=== PATIENT | male | born 1960 | race Caucasian/White ===

== ENCOUNTER 2018-02-05 15:29 | Outpatient (CLI) | payer MEDICAID, SELFPAY ==
--- NOTE | 2018-02-05 15:29 | DI.REPORT_ITS ---
SYMPTOMS/DIAGNOSIS: LOW BACK PAIN, M54.5 LUMBOSACRAL SPINE: The vertebral bodies are intact. Disc space narrowing is noted at L3-L4, L4-L5 and L5-S1. Endplate sclerosis and syndesmophyte formation is evident. Also, there are degenerative changes at T11-T12 and T12-L1 levels. The pedicles, spinous and transverse processes appear intact. Facet joint DJD is demonstrated without evidence of spondylolysis or spondylolisthesis. The sacrum and sacroiliac joints appear intact. SUMMARY: Multilevel degenerative disc disease and DJD is demonstrated. Please see the above discussion.
== END 2018-02-05 15:30 ==
PROVIDERS: PCP Family Medicine; Visit Provider Family Medicine
DX: M54.5 Low back pain (principal); M51.36 Other intervertebral disc degeneration, lumbar region
CPT/HCPCS: 72110

== ENCOUNTER 2018-07-31 01:08 | Outpatient (CLI) | payer MEDICAID, SELFPAY ==
[2018-07-31 12:50] LABS: ALT 21 U/L (12-78); AST 17 U/L (15-37); Albumin 3.4 g/dL (3.4-5.0); Alkaline Phosphatase 107 U/L (46-116); Anion Gap 9.4 mmol/L (3-11); BUN 22 mg/dL (7-18); CO2 26.6 mmol/L (21.0-32.0); CREATININE 1.14 mg/dL (0.70-1.30); Chloride 104 mmol/L (98-107); Cholesterol 152 mg/dL (50-200); Glucose 86 mg/dL (70-100); HDL Cholesterol 37 mg/dL (40-60); LDL CHOLESTEROL 88 mg/dL (<100); Potassium 4.3 mmol/L (3.5-5.1); Sodium 140 mmol/L (136-145); TSH (W/Ref FT4) 3.71 uIU/mL (0.358-3.74); Total Protein 7.3 g/dL (6.4-8.2); Triglyceride 152 mg/dL (30-150)
[2018-07-31 13:05] LABS: Bilirubin, Total 0.6 mg/dL (0.2-1.0)
== END 2018-07-31 01:28 ==
PROVIDERS: PCP Family Medicine; Visit Provider Family Medicine
DX: D86.9 Sarcoidosis, unspecified (principal); E78.5 Hyperlipidemia, unspecified; I25.10 Atherosclerotic heart disease of native coronary artery without angina pectoris; I10 Essential (primary) hypertension; Z00.00 Encounter for general adult medical examination without abnormal findings
CPT/HCPCS: 36415; 80053; 80061; 83721; 84443

== ENCOUNTER 2018-10-09 02:05 | Outpatient (CLI) | payer MEDICAID, SELFPAY ==
[2018-10-09 09:44] LABS: Abs Immature Grans 0.06 k/cumm (0.0-0.09); Absolute Basophil Count 0.03 k/cumm (0.0-0.2); Absolute Eosinophil Count 0.39 k/cumm (0.0-0.7); Absolute Lymphocyte Count 0.84 k/cumm (1.2-3.4); Absolute Monocyte Count 0.98 k/cumm (0.11-0.7); Absolute Neutrophil Count 7.11 k/cumm (1.2-6.7); Basophils % 0.3; Eosinophils % 4.1; HCT 43.2 % (40.0-50.0); HGB 14.4 g/dL (13.5-17.5); Immature Grans % 0.6; Lymphocytes % 8.9; Mean Corp. HGB Concentration 33.3 g/dL (32.0-36.0); Mean Corpuscular Hemoglobin 28.9 pg (27.0-33.0); Mean Corpuscular Volume 86.7 fL (80-95); Mean Platelet Volume 9.5 fL (8.0-11.0); Monocytes % 10.4; Neutrophils % 75.7; Platelet Count 290 x1000/uL (130-400); RBC 4.98 m/cumm (4.50-6.00); RBC Distribution Width 14.2 % (11.8-14.1); White Blood Cell Count 9.41 k/cumm (4.4-10.8)
[2018-10-09 10:27] LABS: ALT 25 U/L (12-78); AST 16 U/L (15-37); Albumin 3.8 g/dL (3.4-5.0); Alkaline Phosphatase 95 U/L (46-116); Anion Gap 7.9 mmol/L (3-11); BUN 22 mg/dL (7-18); Bilirubin, Total 0.5 mg/dL (0.2-1.0); CO2 28.1 mmol/L (21.0-32.0); CREATININE 1.18 mg/dL (0.70-1.30); Calcium 9.3 mg/dL (8.5-10.1); Chloride 102 mmol/L (98-107); Glucose 94 mg/dL (70-100); Sodium 138 mmol/L (136-145); Total Protein 7.7 g/dL (6.4-8.2)
== END 2018-10-09 02:25 ==
PROVIDERS: PCP Family Medicine; Visit Provider Internal Medicine Infectious Disease
DX: B45.0 Pulmonary cryptococcosis (principal)
CPT/HCPCS: 36415; 80053; 85025; 86403

== ENCOUNTER 2019-01-14 11:57 | Emergency (ER) | payer MEDICAID, SELFPAY ==
[2019-01-14 12:04] VITALS: BP 130/68; PULSE 103; RESP 20; TEMP 37.7; O2SAT 97
[2019-01-14 12:26] LABS: Bilirubin Small (Negative); Blood Moderate (Negative); Clarity Cloudy (Clear); Glucose Negative (Negative); Ketones Trace mg/dL (Negative); Leukocyte Esterase Moderate (Negative); Nitrite Positive (Negative)
[2019-01-14] MEDS: Normal Saline 1,000 ML 1000 ML IV ×2 (12:32→14:30)
[2019-01-14] MEDS: Normal Saline Flush 10 ML SYR IVP (12:32)
[2019-01-14 12:40] LABS: Abs Immature Grans 0.03 k/cumm (0.0-0.09); Absolute Basophil Count 0.02 k/cumm (0.0-0.2); Absolute Eosinophil Count 0.04 k/cumm (0.0-0.7); Absolute Lymphocyte Count 0.37 k/cumm (1.2-3.4); Basophils % 0.2; Eosinophils % 0.3; HCT 38.8 % (40.0-50.0); Immature Grans % 0.2; Mean Corp. HGB Concentration 33.5 g/dL (32.0-36.0); Mean Corpuscular Hemoglobin 28.3 pg (27.0-33.0); Mean Corpuscular Volume 84.3 fL (80-95); Mean Platelet Volume 9.6 fL (8.0-11.0); Monocytes % 4.7; Neutrophils % 91.6; Platelet Count 245 x1000/uL (130-400); RBC Distribution Width 14.4 % (11.8-14.1); White Blood Cell Count 12.46 k/cumm (4.4-10.8)
[2019-01-14 12:41] LABS: Absolute Monocyte Count 0.59 k/cumm (0.11-0.7); Absolute Neutrophil Count 11.41 k/cumm (1.2-6.7)
[2019-01-14 12:46] LABS: Bacteria Many HPF (Negative); C & S Indicated? Yes; Casts Negative LPF (Negative); Crystals Negative HPF (Negative); Epithelial Cells Negative HPF (Negative); Mucus Negative (Negative); WBC >50 HPF (0-5)
[2019-01-14 12:56] LABS: ALT 17 U/L (12-78); AST 14 U/L (15-37); Albumin 3.2 g/dL (3.4-5.0); Alkaline Phosphatase 96 U/L (46-116); Anion Gap 13.2 mmol/L (3-11); BUN 26 mg/dL (7-18); Bilirubin, Total 0.7 mg/dL (0.2-1.0); CO2 22.8 mmol/L (21.0-32.0); CREATININE 1.57 mg/dL (0.70-1.30); Calcium 8.8 mg/dL (8.5-10.1); Chloride 95 mmol/L (98-107); Estimated GFR 45.45 (mL/min/1.73m2); Glucose 156 mg/dL (70-100); Potassium 3.7 mmol/L (3.5-5.1); Sodium 131 mmol/L (136-145)
--- NOTE | 2019-01-14 12:57 | DI.RAD_ITS ---
SYMPTOM/DIAGNOSIS: COUGH, FEVER PA AND LATERAL CHEST: The diaphragm is elevated on the left and is significantly more elevated than on previous radiograph of 06/2015. There is a new left suprahilar mass with probable left upper lobe volume loss. Patchy areas of increased radiodensity are seen in the right upper lobe as well which are nonspecific. No pleural effusion is seen. CONCLUSION: Findings suspicious for new left upper lobe mass measuring up to 7 cm. in diameter on the lateral view. Question additional intrapulmonary infiltrates or nodules, left upper lobe and right upper lobe. Correlation with chest CT suggested if the patient has not had a recent chest CT.
[2019-01-14] MEDS: cefTRIAXone 1 GM/50 ML BAG IVPB (13:39)
--- NOTE | 2019-01-14 14:09 | ED.GENADUL_ITS ---
Discharge Plan Disposition Patient Disposition: HOME Condition: Stable Discharge Details Chief Complaint: Urinary Clinical Impression: Urinary tract infection Primary Care Provider: Caryn Hammond ED Provider: Randal Díaz Home Meds and New Rx's Prescriptions: New cephalexin [Keflex] 500 mg capsule 500 mg PO TID 7 Days Qty: 21 RF: 0 Continued atorvastatin 40 mg tablet 40 mg PO DAILY Qty: 90 RF: 12 Advair HFA 115-21 mcg/actuation HFA aerosol inhaler 2 puff Inhalation BID Qty: 3 RF: 12 omeprazole 20 mg capsule,delayed release(DR/EC) 20 mg PO DAILY Qty: 90 RF: 12 levothyroxine 50 mcg tablet 50 mcg PO DAILY Qty: 90 RF: 12 aspirin [Aspirin Low-Strength] 81 MG tablet,chewable 81 mg PO DAILY RF: 0 albuterol sulfate [ProAir HFA] 8.5 GM HFA aerosol inhaler 1 - 2 puff Inhalation Q6H PRN Qty: 1 RF: 1 atenolol 50 MG tablet 0.5 tab PO DAILY Qty: 45 RF: 12 Spiriva with HandiHaler 18 mcg capsule, w/inhalation device 1 cap Inhalation DAILY Qty: 3 RF: 12 Discharge Instructions Instructions: Urinary Tract Infection in Men (ED) Additional Instructions: Return immediately to the emergency department for any new or significant worsening of symptoms, fever chills, nausea vomiting. Otherwise stay well- hydrated and follow-up with your primary care provider or return to the emergency department if not improving in the next 24 to 48-hour Referrals: Caryn Hammond MD, [place] [Primary Care Provider] - Discharge Data Discharge Date/Time-TO BE ENTERED AT DEPARTURE: 01/14/19 15:55 Medical Decision Making Patient reports on Friday he started having some dysuria and discomfort. Due to this patient started drinking less water due to it hurting when he peed. Today he is developed a fever and chills along with continued dysuria. Patient denies any penile discharge, new sexual partners or risk for STI, denies chest pain nausea vomiting diarrhea, does state cough which is chronic for him. Physical exam shows clear lung sounds throughout all lung moraes, patient slightly tachycardiac otherwise normal cardiac exam, no abdominal pain or discomfort no CVA tenderness. Plan to check labs and urinalysis given the patient is low- grade fever, tachycardic, and has urinary symptoms. Review of urinalysis shows findings suggestive of urinary tract infection. Labs reviewed and shows leukocytosis, low sodium and chloride with elevated anion gap and decreased renal function, slightly elevated glucose, otherwise nondiagnostic CMP. Chest x-ray was performed due to patient's report of cough and does show abnormality in the left upper lung with elevated diaphragm. Did review [facility] records and shows CT scan that was performed on 09/29/2018 and shows similar results. Patient states that he has been followed up with these results with pulmonology and even just saw them recently. Given this I do not feel that any other interventions are needed for abnormal chest x-ray. Given concerning findings for urinary tract infection pending culture patient was given 1 dose IV Rocephin and plan to place patient on Keflex 500 3 times daily. staffing coordinator did inform me after 1 L of fluids patient did urinate 450 out area did have patient bladder scan due to him stating difficulty voiding and did have 250 mL's still present in the bladder. Discussed with patient further hydration and/or catheter but patient refused indwelling catheter at this time but did state he would take further hydration given that he has not been drinking much fluids. Patient stated continued improvement overall symptoms patient discharged. Return precautions were discussed after discussion of diagnosis and plan of care patient has no further needs, questions, or concerns and states clear understanding to return to the emergency department for any worsening symptoms.. HPI General Mode of arrival: ambulatory . Date/Time Provider Initiated Documentation: 01/14/19 12:09 . Limitations to Documentation: no limitations . Information obtained by: patient and RN notes reviewed . History of Present Illness 58 year old M presents to the emergency department with the chief complaint of UTI symptoms , Quality is described as other (Denies any pain), Patient started experiencing this day(s) (4) and it has been constant. No relieving factors improve symptom(s), No exacerbating factors reported . Patient notes no other symptoms.. Patient did receive the following treatments prior to arrival, none Related Data Home Medications Medication Instructions Recorded Confirmed aspirin [Aspirin Low-Strength] 81 mg PO DAILY tab-cap 08/12/12 12/03/18 albuterol sulfate [ProAir HFA] 1 - 2 puff INHALATION Q6H PRN #1 04/30/18 06/27/19 inhaler atenolol 0.5 tab PO DAILY #45 tab 02/05/18 12/03/18 tiotropium bromide 18 mcg capsule 1 cap INHALATION DAILY #3 tab-cap 05/12/18 12/03/18 with inhalation device atorvastatin 40 mg tablet 40 mg PO DAILY #90 tab-cap 08/04/18 12/03/18 fluticasone propionate-salmeterol 2 puff INHALATION BID #3 inhaler 08/04/18 12/03/18 115 mcg-21 mcg/actuation HFA inhaler omeprazole 20 mg capsule,delayed 20 mg PO DAILY #90 tab-cap 08/04/18 12/03/18 release levothyroxine 50 mcg tablet 50 mcg PO DAILY #90 tab-cap 12/03/18 12/03/18 cephalexin [Keflex] 500 mg PO TID 7 Days #21 cap 01/14/19 Previous Rx's Medication Instructions Recorded albuterol sulfate [ProAir HFA] 1 - 2 puff INHALATION Q6H PRN #1 10/06/17 inhaler atenolol 0.5 tab PO DAILY #45 tab 02/05/18 tiotropium bromide 18 mcg capsule 1 cap INHALATION DAILY #3 tab-cap 05/12/18 with inhalation device atorvastatin 40 mg tablet 40 mg PO DAILY #90 tab-cap 08/04/18 fluticasone propionate-salmeterol 2 puff INHALATION BID #3 inhaler 08/04/18 115 mcg-21 mcg/actuation HFA inhaler omeprazole 20 mg capsule,delayed 20 mg PO DAILY #90 tab-cap 08/04/18 release levothyroxine 50 mcg tablet 50 mcg PO DAILY #90 tab-cap 12/03/18 cephalexin [Keflex] 500 mg PO TID 7 Days #21 cap 01/14/19 Allergies Allergy/AdvReac Type Severity Reaction Status Date / Time No Known Allergies Allergy Unverified 01/14/19 12:20 General Stated Complaint: Urinary RADHA: 3 Review of Systems Constitutional Denies body ache(s), Reports chills, Reports fever(s), Reports malaise and Denies weakness Cardiovascular Denies chest pain Respiratory Reports cough Gastrointestinal Denies abdominal pain, Denies nausea and Denies vomiting Genitourinary Reports as per HPI, Denies hematuria, Reports difficulty urinating, Reports dy suria, Denies penile discharge, Denies testicular pain and Reports urinary urgency Neurologic Denies weakness [facility] Medical History Annual physical exam (Resolved 02/05/18) ASCVD (arteriosclerotic cardiovascular disease) ASCVD (arteriosclerotic cardiovascular disease) (Resolved) Duodenitis (Resolved) Essential hypertension (Chronic 04/16/13) Foul smelling urine (Resolved) HTN (hypertension) Hyperlipidemia Hyperlipidemia (Chronic) Low back pain (Chronic 02/05/18) Mild intermittent reactive airway disease with acute exacerbation (Chronic 05/25/15) Nausea Nausea (Resolved) Pulmonary cryptococcosis (Acute) Reactive airway disease Sarcoidosis Sarcoidosis (Chronic 11/28/09) Syncope and collapse (Resolved) Weight loss (Chronic 06/16/17) Surgical History EGD - MAC (07/26/16) HEART CATH (~2006) S/P cardiac catheterization (Resolved) Family History Mother Hyperlipidemia Father No problems noted. Grandfather No problems noted. Grandmother Deep venous thrombosis Grandmother Heart disease Social History Smoking/Tobacco Use Status: Never Drug use: Never Do you feel safe at home: Yes Do you feel safe in your relationship?: Yes Exam Const General: cooperative and no acute distress Orientation: alert, awake and oriented x3 Resp Effort & Inspection: normal respiratory effort and able to speak in complete sentences Auscultation: clear to auscultation bilaterally Cardio Rate: regular rate Rhythm: regular rhythm Heart Sounds: S1 normal and S2 normal GI Palpation: nontender Back/Spine/Pelvis Back: no CVA tenderness Neuro General: alert, awake and oriented x3 Extrem General: normal capillary refill Course Vital Signs Temperature 37.7 C H 01/14/19 12:04 Pulse 103 H 01/14/19 12:04 Respiratory Rate 20 01/14/19 12:04 Blood Pressure 130/68 01/14/19 12:04 Pulse Oximetry 97 01/14/19 12:04 Temperature 37.7 C H 01/14/19 12:04 Temperature Source Temporal Artery Scan 01/14/19 12:04 Pulse 103 H 01/14/19 12:04 Respiratory Rate 20 01/14/19 12:04 Respiratory Effort Non-Labored 01/14/19 12:19 Blood Pressure 130/68 01/14/19 12:04 Pulse Oximetry 97 01/14/19 12:04 Oxygen Delivery Method Room Air 01/14/19 12:04 Oxygen Flow Rate 0 01/14/19 12:04 Lab/Test Results Lab/Test Results: 01/14/19 12:15 Urine - Reflex from Ua Urine Culture - Pending Laboratory Tests Range/Units 01/14/19 01/14/19 01/14/19 12:15 12:30 12:30 WBC (4.4-10.8) k/cumm 12.46 H RBC (4.50-6.00) m/cumm 4.60 Hgb (13.5-17.5) g/dL 13.0 L Hct (40.0-50.0) % 38.8 L MCV (80-95) fL 84.3 MCH (27.0-33.0) pg 28.3 MCHC (32.0-36.0) g/dL 33.5 RDW (11.8-14.1) % 14.4 H Plt Count (130-400) x1000/uL 245 MPV (8.0-11.0) fL 9.6 Immature Gran % 0.2 Neutrophils % 91.6 Lymphocytes % 3.0 Monocytes % 4.7 Eosinophils % 0.3 Basophils % 0.2 Absolute Neutrophils (1.2-6.7) k/cumm 11.41 H Absolute Lymphocytes (1.2-3.4) k/cumm 0.37 L Absolute Monocytes (0.11-0.7) k/cumm 0.59 Absolute Eosinophils (0.0-0.7) k/cumm 0.04 Absolute Basophils (0.0-0.2) k/cumm 0.02 Sodium (136-145) mmol/L 131 L Potassium (3.5-5.1) mmol/L 3.7 Chloride (98-107) mmol/L 95 L Carbon Dioxide (21.0-32.0) mmol/L 22.8 Anion Gap (3-11) mmol/L 13.2 H BUN (7-18) mg/dL 26 H Creatinine (0.70-1.30) mg/dL 1.57 H Estimated GFR/1.73 m2 (mL/min/1.73m2) 45.45 Glucose (70-100) mg/dL 156 H Calcium (8.5-10.1) mg/dL 8.8 Total Bilirubin (0.2-1.0) mg/dL 0.7 AST (15-37) U/L 14 L ALT (12-78) U/L 17 Alkaline Phosphatase (46-116) U/L 96 Total Protein (6.4-8.2) g/dL 8.0 Albumin (3.4-5.0) g/dL 3.2 L Urine Color (Yellow) Yellow Urine Clarity (Clear) Cloudy Urine pH (5-8) 6.0 Ur Specific [place] (1.005-1.025) 1.010 Urine Protein (Negative) mg/dL 100 H Urine Ketones (Negative) mg/dL Trace H Urine Blood (Negative) Moderate H Urine Nitrite (Negative) Positive H Urine Bilirubin (Negative) Small H Urine Urobilinogen (Up TO 0.2) EU/dL 1.0 H Ur Leukocyte Esterase (Negative) Moderate H Urine RBC (0-2) 3-5 H Urine WBC (0-5) HPF >50 Ur Epithelial Cells (Negative) HPF Negative Urine Crystals (Negative) HPF Negative Urine Bacteria (Negative) HPF Many Urine Casts (Negative) LPF Negative Urine Mucus (Negative) Negative Ur Culture Indicated? Yes Urine Glucose (Negative) mg/dL Negative
== END 2019-01-14 15:55 | disposition home or self-care (01) ==
PROVIDERS: Emergency Provider Nurse Practitioner Family; PCP Family Medicine
DX: N39.0 Urinary tract infection, site not specified (principal); R05 Cough; I10 Essential (primary) hypertension; J45.909 Unspecified asthma, uncomplicated
CPT/HCPCS: 36415; 80053; 87077; 96361; 96365; 99284; 71046; 81003; 81015; 85025; 87086; 87186; J0696; J3490

== ENCOUNTER 2019-10-07 01:09 | Outpatient (CLI) | payer MEDICAID, SELFPAY ==
[2019-10-07 08:36] LABS: Abs Immature Grans 0.03 k/cumm (0.0-0.09); Absolute Basophil Count 0.03 k/cumm (0.0-0.2); Absolute Eosinophil Count 0.41 k/cumm (0.0-0.7); Absolute Monocyte Count 0.75 k/cumm (0.11-0.7); Absolute Neutrophil Count 5.15 k/cumm (1.2-6.7); Basophils % 0.4; Eosinophils % 5.6; HGB 13.7 g/dL (13.5-17.5); Immature Grans % 0.4 %; Lymphocytes % 12.4; Mean Corp. HGB Concentration 33.4 g/dL (32.0-36.0); Mean Corpuscular Hemoglobin 28.6 pg (27.0-33.0); Mean Corpuscular Volume 85.6 fL (80-95); Mean Platelet Volume 9.2 fL (8.0-11.0); Monocytes % 10.3; Neutrophils % 70.9; Platelet Count 300 x1000/uL (130-400); RBC 4.79 m/cumm (4.50-6.00); RBC Distribution Width 14.5 % (11.8-14.1); White Blood Cell Count 7.27 k/cumm (4.4-10.8)
[2019-10-07 09:48] LABS: ALT 24 U/L (16-63); AST 29 U/L (15-37); Albumin 3.8 g/dL (3.4-5.0); Alkaline Phosphatase 134 U/L (46-116); Anion Gap 6.8 mmol/L (3-11); BUN 17 mg/dL (7-18); Bilirubin, Total 0.6 mg/dL (0.2-1.0); CO2 29.2 mmol/L (21.0-32.0); CREATININE 1.42 mg/dL (0.70-1.30); Calcium 9.4 mg/dL (8.5-10.1); Calculated LDL 107 mg/dL (<100); Chloride 102 mmol/L (98-107); Cholesterol 174 mg/dL (<200); Estimated GFR 50.85 (mL/min/1.73m2); Glucose 93 mg/dL (74-106); HDL Cholesterol 35 mg/dL (40-60); Potassium 5.4 mmol/L (3.5-5.1); Sodium 138 mmol/L (136-145); TSH (W/Ref FT4) 2.48 uIU/mL (0.36-3.74); Total Protein 7.9 g/dL (6.4-8.2); Triglyceride 164 mg/dL (<150)
== END 2019-10-07 01:29 ==
PROVIDERS: PCP Family Medicine; Visit Provider Family Medicine
DX: E03.9 Hypothyroidism, unspecified (principal); E78.5 Hyperlipidemia, unspecified; B45.0 Pulmonary cryptococcosis
CPT/HCPCS: 36415; 80053; 80061; 84443; 85025

== ENCOUNTER 2020-02-29 00:30 | Outpatient (CLI) | payer MEDICAID, SELFPAY ==
--- NOTE | 2020-02-29 08:00 | DI.US_ITS ---
EXAM: US CAROTID CLINICAL HISTORY: syncope vs seizure,R55. TECHNIQUE: Ultrasound carotids performed using grayscale, color-flow, and spectral Doppler imaging. COMPARISON: No exams were available for comparison FINDINGS: RIGHT CAROTID ARTERY: Plaque: None Velocity elevation: None. LEFT CAROTID ARTERY: Plaque: None Velocity elevation: None. VERTEBRAL ARTERIES: Antegrade flow. Measurements: R Bulb: 45.2cm/s PS / 13.7cm/s ED R CCA: 71.5cm/s PS / 15.8cm/s ED R ECA: 88.9cm/s PS / 15.2cm/s ED R ICA Prox: 58.9cm/s PS /16.8cm/s ED R ICA Mid: 81cm/s PS / 27.3cm/s ED R ICA Distal: 87.8cm/s PS /33.7cm/s ED R Vert: 47.9cm/s PS / 12.6cm/s ED R SVR: 1.23 R DVR: 2.13 L Bulb: 65.7cm/s PS /10.5cm/s ED L CCA: 93.1cm/s PS / 24.7cm/s ED L ECA: 60.5cm/s PS /9.5cm/s ED L ICA Prox:67.8cm/s PS / 16.8cm/s ED L ICA Mid: 74.1cm/sPS / 25.2cm/s ED L ICA Distal: 77.3cm/s PS / 27.3cm/s ED L Vert: 46.3cm/s PS / 10cm/s ED L SVR: 0.83 L DVR: 1.11 IMPRESSION: No evidence for hemodynamically significant carotid stenosis. Criteria for Carotid Stenosis: Normal: ICA PSV <125 cm/s no plaque or intimal thickening is visible. <50% stenosis: ICA PSV <125 cm/s and plaque or intimal thickening is visible. 50-69% stenosis: ICA PSV is 125-250 cm/s and plaque is visible. >70% stenosis to near occlusion: ICA PSV >250 cm/s with visible plaque and luminal narrowing. DATA REPOSITORY:
--- NOTE | 2020-02-29 08:00 | DI.MRI_ITS ---
EXAM: MR BRAIN WO CLINICAL HISTORY: SYNCOPE,R55 TECHNIQUE: Multiplanar multisequence MRI of the brain was performed. COMPARISON: No exams were available for comparison FINDINGS: VENTRICLES AND EXTRA AXIAL SPACES: Normal in size and morphology for the patient's age. MIDLINE SHIFT: None. CEREBRAL PARENCHYMA: No focus of restricted diffusion to suggest acute infarct. No space-occupying le lynda identified. HEMORRHAGE: None. BRAINSTEM/CEREBELLUM: Normal. CALVARIUM: Normal. VISUALIZED PARANASAL SINUSES/MASTOIDS:Small mucous retention cyst or polyp in the left maxillary sinu s. The sinuses and mastoid air cells are otherwise clear. [place]: Normal flow void. PIT[place]ARY GL[place]: Unremarkable. OTHER FINDINGS: None. IMPRESSION: Unremarkable MRI of the brain. DATA REPOSITORY:
== END 2020-02-29 00:50 ==
PROVIDERS: PCP Family Medicine; Visit Provider Family Medicine
DX: R55 Syncope and collapse (principal)
CPT/HCPCS: 70551; 93880

== ENCOUNTER 2020-02-29 03:26 | Outpatient (CLI) | payer MEDICAID, SELFPAY | END 2020-02-29 03:46 | PROVIDERS: PCP Family Medicine; Visit Provider Family Medicine | DX: R55 Syncope and collapse (principal) | CPT/HCPCS: 93225 ==

== ENCOUNTER 2020-03-02 04:54 | Outpatient (CLI) | payer MEDICAID, SELFPAY ==
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
== END 2020-03-02 05:14 ==
PROVIDERS: PCP Family Medicine; Visit Provider Family Medicine
DX: R41.89 Other symptoms and signs involving cognitive functions and awareness (principal)
CPT/HCPCS: 95819

== ENCOUNTER 2020-03-03 07:59 | Outpatient (CLI) | payer MEDICAID, SELFPAY | END 2020-03-03 08:19 | PROVIDERS: PCP Family Medicine; Visit Provider Family Medicine | DX: R55 Syncope and collapse (principal) | CPT/HCPCS: 93226 ==

== ENCOUNTER 2020-03-21 00:08 | Outpatient (CLI) | payer MEDICAID, SELFPAY ==
--- NOTE | 2020-03-03 08:48 | W.HOLTRPT ---
Date of service: 03/03/20 Time of Service: 08:48 Holter Monitor Report Referring Provider:: marta Indications:: Syncope Holter Monitor Note: This is a 48-hour Holter monitor ordered for the indication of syncope. ?The patient was in normal sinus rhythm for the majority of the recording with an average heart rate of 75 bpm. ?There were 0 episodes of ventricular tachycardia and nor any episodes of supraventricular tachycardia. ?There were 4 total PACs and 3 total PVCs. ?There were no episodes of atrial fibrillation, no pauses greater than 3 seconds and no evidence of high degree heart block.
--- NOTE | 2020-03-21 06:00 | DI.US_ITS ---
APPROVED REPORT EXAM: Comprehensive 2D, Doppler, and color-flow Echocardiogram Patient Location: Out-Patient Acetylene Burner: Delores Weinberg RDCS (AE) Indications: Syncope, Pulmonary cryptococcosis Other Information Technically limited study due to body habitus, lung disease.. Conclusion Left Ventricle : The left ventricle is normal size. The left ventricular systolic function is normal. The left ventricular ejection fraction is within the normal range. There is normal left ventricular wall thickness. There is normal LV segmental wall motion. The left ventricular diastolic function is normal. LVEF is 55%. Right Ventricle : The right ventricle is normal size. The right ventricular systolic function is norm al. The RVSP is 30.3 mmHg. Atria : The left atrium size is normal. The right atrium size is normal. Valves: There are no hemodynamically significant valvular lesions. Great Vessels : The aortic root is normal in size. Ascending aorta is not well visualized. Aortic arc h is not well visualized. IVC is normal in size and collapses >50% with inspiration. Please see remainder of study for further details. Compared to study from 07/20/2015, there is no sig nificant change. Wall motion Left Ventricle The left ventricle is normal size. The left ventricular systolic function is normal. The left ventric ular ejection fraction is within the normal range. There is normal left ventricular wall thickness. T here is normal LV segmental wall motion. The left ventricular diastolic function is normal. There is no ventricular septal defect visualized. LVEF is 55%. Right Ventricle The right ventricle is normal size. The right ventricular systolic function is normal. The RVSP is 30 .3 mmHg. Atria The left atrium size is normal. The right atrium size is normal. The interatrial septum is intact wit h no evidence for an atrial septal defect. Aortic Valve The aortic valve is normal in structure. Aortic valve is trileaflet. There is no aortic valvular sten osis. No aortic regurgitation is present. Mitral Valve The mitral valve is normal in structure. No evidence of mitral valve stenosis. Trace mitral regurgita tion. Tricuspid Valve The tricuspid valve is normal in structure. There is no tricuspid valve stenosis. Mild tricuspid regu rgitation. Pulmonic Valve The pulmonary valve is normal in structure. There is no pulmonic valvular stenosis. Mild pulmonic reg urgitation. Great Vessels The aortic root is normal in size. Ascending aorta is not well visualized. Aortic arch is not well vi sualized. IVC is normal in size and collapses >50% with inspiration. Pericardium There is no pericardial effusion. 2D Dimensions IVSD d PLAX 0.93 cm M: 0.6-1.2 LV Vol A2C d MOD 93.9 mL LVPW d PLAX 0.92 cm M: 0.6 - 1.2 LV Vol A4C d MOD 134.3 mL LVID d PLAX 4.82 cm M: 4.2 - 5.8 LV EF A4C MOD 56.2 % LVDs 3.55 cm M: 2.5 - 4.0 LV EF A2C MOD 54.1 % Ao Root d 3.26 cm M: 3.1 - 3.7 LV EF Biplane MOD 52.8 % LV EF Teichholz 50.1 % SV 59.55 mL LVEF (López's) 52.79 % M: 52 - 72 SV Index 29.66 mL/m2 LV Volume 84.49 mL M: 62 - 150 LV Volume Index 42.03 mL/m2 M: 34 - 74 LV Vol Biplane MOD 112.8 mL FS 25.40 % M-Mode TAPSE 2.09 cm (M/F) >1.7 LV Diastology MV E' medial 0.113 (>0.07 m/s) E/A Ratio 1.0 LV E/e MED 5.70 (<14) MV E Vmax 0.65 (0.4-1.3 m/s) MV E' lateral 0.078 (>0.1 m/s) MV A Vmax 0.65 (0.4-1.3 m/s) LV E/e LAT 8.30 (<14) MV E/A Ratio 0.94 MV E/E' medial 5.73 MV E/E' lateral 8.31 Aortic Valve LVOT Vmax 0.74 m/s LVOT Mean Chris. 0.50 m/s LVOT Peak Grad 2.2 mmHg LVOT Mean Grad 1.1 mmHg LVOT VTI 0.177 m AoV Vmax 0.85 m/s Velocity Ratio 0.87 AoV Mean Chris. 0.60 m/s AoV Peak Grad 2.9 mmHg AoV Mean Grad 1.6 mmHg AoV VTI 0.187 m Mitral Valve MV DT 145 (160-240 msec) MV PHT 42 msec MV Area PHT 5.23 cm2 Pulmonary Valve PV Vmax 0.62 (0.5-1.5 m/s) RVOT Peak Gr. 1.68 mmHg PV Peak Grad 1.5 mmHg RVOT Mean Gr. 0.80 mmHg PV Mean Grad 0.9 mmHg RVOT VTI 0.159 m PV VTI 0.140 m RVOT Vmax 0.65 m/s Tricuspid Valve TR Peak Grad 27.2 mmHg TR Vmax 2.61 m/s RA Pressure 3.00 mmHg RVSP (TR) 30.3 mmHg
== END 2020-03-21 00:28 ==
PROVIDERS: PCP Family Medicine; Visit Provider Family Medicine
DX: R55 Syncope and collapse (principal); I49.1 Atrial premature depolarization; I49.3 Ventricular premature depolarization; B45.0 Pulmonary cryptococcosis
CPT/HCPCS: 93306

== ENCOUNTER 2020-03-21 01:56 | Outpatient (CLI) | payer MEDICAID, SELFPAY ==
--- NOTE | 2020-04-25 08:58 | W.CARDEVENT ---
Date of service: 04/25/20 Time of Service: 08:58 Cardiac Event Recorder Referring Provider:: Caryn Hammond Indications:: Syncope Cardiac Event Note: This is a 30-day event monitor reportedly ordered for symptoms of syncope Rhythm throughout with sinus. Average heart rate was 74. Minimum heart rate was 56 and maximum 104 There were no significant atrial or ventricular ectopic beats. There was no atrial fibrillation. Mobitz 1 second-degree AV block (Wenckebach) was noted during sleep, with 1 sinus pause lasting 3.7 seconds. This occurred at 1:09 AM and was presumably asymptomatic
== END 2020-03-21 02:16 ==
PROVIDERS: PCP Family Medicine; Visit Provider Psychiatry & Neurology Neurology
DX: R55 Syncope and collapse (principal); B45.0 Pulmonary cryptococcosis
CPT/HCPCS: 93270

== ENCOUNTER 2020-05-18 10:39 | Outpatient (CLI) | payer MEDICAID, SELFPAY ==
[2020-05-20 16:00] LABS: COVID-19 RT-PCR Result NEGATIVE (Negative)
== END 2020-05-18 10:59 ==
PROVIDERS: PCP Family Medicine; Visit Provider Family Medicine
DX: Z11.59 Encounter for screening for other viral diseases (principal)
CPT/HCPCS: U0003

== ENCOUNTER 2020-05-19 13:55 | Outpatient (REF) | payer MEDICAID, SELFPAY ==
[2020-05-19 14:08] LABS: Bilirubin Negative (Negative); Blood Moderate (Negative); Clarity Cloudy (Clear); Glucose Negative (Negative); Ketones Negative (Negative); Leukocyte Esterase Moderate (Negative); Nitrite Negative (Negative); Urobilinogen 0.2 EU/dL (Up TO 0.2)
[2020-05-19 14:17] LABS: WBC >50 HPF (0-5)
[2020-05-19 14:18] LABS: Bacteria Packed HPF (Negative); C & S Indicated? Yes
== END 2020-05-19 14:15 ==
LOC: NCHCN 13:55
PROVIDERS: PCP Family Medicine; Visit Provider Family Medicine
DX: R39.15 Urgency of urination (principal)
CPT/HCPCS: 87077; 81003; 81015; 87086; 87186

== ENCOUNTER 2020-06-19 02:56 | Outpatient (CLI) | payer MEDICAID, SELFPAY ==
[2020-06-19 11:32] LABS: Abs Immature Grans 0.06 10^3/uL (0.0-0.06); Absolute Basophil Count 0.08 10^3/uL (0.0-0.2); Absolute Eosinophil Count 0.32 10^3/uL (0.0-0.7); Absolute Monocyte Count 0.88 10^3/uL (0.1-0.8); Absolute Neutrophil Count 4.74 10^3/uL (1.2-6.7); Basophils % 1.2; Eosinophils % 4.8; HCT 41.8 % (40.0-50.0); HGB 13.6 g/dL (13.5-17.5); Immature Grans % 0.9; MCHC 32.5 % (32.0-36.0); MCV 86.2 fL (80-95); MPV 9.8 fL (8.0-11.0); Monocytes % 13.2; Neutrophils % 70.9; Nucleated RBC 0 %; Platelet Count 283 10^3/uL (130-400); RBC 4.85 10^6/uL (4.36-5.78); RDW-SD 44.4 fL; WBC 6.68 10^3/uL (4.4-10.8)
[2020-06-19 12:10] LABS: Iron 72 ug/dL (65-175)
[2020-06-19 12:21] LABS: ALT 26 U/L (16-63); AST 17 U/L (15-37); Albumin 3.7 g/dL (3.4-5.0); Alkaline Phosphatase 88 U/L (46-116); Anion Gap 2.6 mmol/L (3-11); BUN 19 mg/dL (7-18); Bilirubin, Total 0.6 mg/dL (0.2-1.0); CO2 30.4 mmol/L (21.0-32.0); CREATININE 1.19 mg/dL (0.70-1.30); Chloride 103 mmol/L (98-107); Ferritin 432 ng/mL (26-388); Glucose 96 mg/dL (74-106); Potassium 4.8 mmol/L (3.5-5.1); Sodium 136 mmol/L (136-145); TSH (W/Ref FT4) 2.15 uIU/mL (0.36-3.74); Total Protein 7.7 g/dL (6.4-8.2)
[2020-06-19 17:06] LABS: PSA, Screening 3.2 ng/mL (0.0-4.5)
== END 2020-06-19 03:16 ==
PROVIDERS: PCP Family Medicine; Visit Provider Family Medicine
DX: I10 Essential (primary) hypertension (principal); E03.9 Hypothyroidism, unspecified; R42 Dizziness and giddiness; I44.1 Atrioventricular block, second degree; B45.8 Other forms of cryptococcosis; Z12.5 Encounter for screening for malignant neoplasm of prostate
CPT/HCPCS: 36415; 80053; 84153; 82728; 83540; 84443; 85025

== ENCOUNTER 2020-07-14 02:04 | Outpatient (CLI) | payer MEDICAID, SELFPAY ==
[2020-07-15 11:33] LABS: COVID-19 RT-PCR UVMMC Result Negative (Negative)
== END 2020-07-14 02:05 | disposition home or self-care (01) ==
LOC: LBO 02:04
PROVIDERS: PCP Family Medicine; Visit Provider Nurse Practitioner
DX: Z20.822 Contact with and (suspected) exposure to COVID-19 (principal); Z01.818 Encounter for other preprocedural examination
CPT/HCPCS: U0003

== ENCOUNTER 2020-10-24 18:05 | Outpatient (CLI) | payer MEDICAID, SELFPAY ==
--- NOTE | 2020-10-24 08:45 | DI.RAD_ITS ---
Exam(s) XR SHOULDER RT COMPLETE 2+V EXAM: XR SHOULDER RT COMPLETE 2+V CLINICAL HISTORY: Acute pain, M25.511. TECHNIQUE: 2D digital imaging was performed. COMPARISON: CR XR CHEST 2V PA LATERAL from 01/14/2019 CR XR CHEST 2V PA LATERAL from 01/14/2019 FINDINGS: BONES: No acute fracture is present. No bony destructive lesion is seen. JOINTS: No dislocation present. Spurring at the AC joint. Glenohumeral joint space well maintained. Mild spurring at the glenoid and adjacent humeral head. Spurring at the greater tuberosity. SOFT TISSUE: Small calcifications a stent to the greater tuberosity which could indicate calcific ten dinosis. Fibrotic changes right upper lobe. IMPRESSION: Degenerative changes and calcific tendinosis. DATA REPOSITORY: RADIATION DOSE DELIVERED:
== END 2020-10-24 18:25 ==
PROVIDERS: PCP Family Medicine; Visit Provider Nurse Practitioner Family
DX: M25.511 Pain in right shoulder (principal); M19.011 Primary osteoarthritis, right shoulder; M75.31 Calcific tendinitis of right shoulder
CPT/HCPCS: 73030

== ENCOUNTER 2021-04-14 10:31 | Emergency (ER) | payer MEDICAID, SELFPAY ==
[2021-04-14] VITALS (38 sets, daily range): BP systolic 133–149; BP diastolic 70–83; PULSE 81–94; RESP 15–24; TEMP 36.7; O2SAT 96–99
--- NOTE | 2021-04-14 10:15 | RT.EKG_ITS ---
APPROVED REPORT Exam: Resting ECG Reason for Exam: dizzy Patient Location: E HR:83 bpm ECG Measurements Heart Rate 83 AXIS SD 195 P 30 QRSd 97 QRS 53 QT 361 T 46 QTc 424 Conclusion Sinus rhythm...normal P axis, V-rate 60- 99
--- NOTE | 2021-04-14 10:30 | DI.RAD_ITS ---
Exam(s) XR PORTABLE CHEST AP CT CHEST PE CTA EXAM: CT CHEST PE CTA CLINICAL HISTORY: ?mass in upper lobe on chest xray. TECHNIQUE: Imaging Protocol: Axial CT angiography was performed with multi-slice acquisition and mu lti-planar and/or 3D reconstructions. CONTRAST MATERIAL: Intravenous: Omnipaque 350 Contrast volume:structured data in ml COMPARISON: CT CHEST FOR PULMONARY EMBOLUS from 04/04/2015 CR,XR XR PORTABLE CHEST AP from 04/14/2021 FINDINGS: Portable AP chest at 1128 hours. Diaphragm is elevated on the left. There are multiple areas of appa rent patchy consolidation or nodularity in the right mid lung. There is a masslike radiodensity proje cted at the left hilum and suprahilar region with superior retraction. CT angiography of the chest was performed with intravenous infusion of 100 cc of Omnipaque 350. The diaphragm is elevated on the left. There are numerous pulmonary nodules, some calcified, with dominant right and left perihilar masses a nd probable areas of atelectasis in both upper lobes. Multiple calcified mediastinal lymph nodes are noted. Comparison with prior CT of 2014 shows interval progression since that time. The findings a s described are consistent with inflammatory/infectious process, however neoplastic disease is not ex cluded on the basis of this examination.. No pleural effusion. Tracheobronchial tree appears intact. No evidence of pulmonary embolic disease. Thoracic aorta is of normal diameter, no thoracic aortic an eurysm or dissection, major branch vessels appear intact. No mediastinal or hilar adenopathy. Images obtained through the upper abdomen show unremarkable appearance of the visualized portions of the liver, spleen, pancreas, adrenals, and kidneys. . IMPRESSION: No evidence of pulmonary embolic disease. Numerous chronic intrapulmonary masses with multiple calci fications and associated calcified mediastinal nodes, progression noted since 2015. Findings are con sistent with infectious or inflammatory process, however underlying malignancy not excluded. RADIATION DOSE DELIVERED: 487.46mGy.cm Total DLP 487.46mGy.cm Total DLP 12.21mGy CTDIvol DATA REPOSITORY: All CT scans at this facility are submitted to the National Radiology Data Registry (NRDR) Dose Index Registry (DIR) with the [employer] (ACR). RADIATION OPTIMIZATION: All CT scans at this facility use at least one of these dose optimization te chniques: automated exposure control; mA and/or kV adjustment per patient size (includes targeted exa ms where dose is matched to clinical indication); or iterative reconstruction.
--- NOTE | 2021-04-14 10:39 | ED.GENADUL_ITS ---
Discharge Plan Disposition Patient Disposition: HOME Condition: Stable Discharge Details Clinical Impression: Spell of altered cognition, Abnormal x-ray Primary Care Provider: Caryn Hammond ED Provider: Rambo Khalil Home Meds and New Rx's Prescriptions: Continued omeprazole 20 mg capsule,delayed release(DR/EC) 20 mg PO DAILY PRN (Reason: gastric reflux) Qty: 90 RF: 12 albuterol sulfate [ProAir HFA] 90 mcg/actuation HFA aerosol inhaler 1 - 2 puff Inhalation Q6H PRN Qty: 18 RF: 5 atorvastatin 40 mg tablet 40 mg PO DAILY Qty: 90 RF: 12 Advair HFA 115-21 mcg/actuation HFA aerosol inhaler 2 puff Inhalation BID Qty: 3 RF: 12 levothyroxine 50 mcg tablet 50 mcg PO DAILY Qty: 90 RF: 12 Spiriva with HandiHaler 18 mcg capsule, w/inhalation device 1 cap Inhalation DAILY Qty: 90 RF: 12 aspirin [Aspirin Low-Strength] 81 MG tablet,chewable 81 mg PO DAILY RF: 0 losartan 50 mg tablet 50 mg PO DAILY Qty: 90 RF: 4 Discharge Instructions Additional Instructions: your blood work showed no new concerning findings nor did your imaging follow up with your primary care provider this week if you feel more ill, have difficulty breathing or chest pain return to the emergency department Medical Decision Making 60 yo male with hx of spells where he doesn't feel himself and sometimes passes out with negative eeg and cardiac monitoring now with loop recorder, who comes in with a spell of not feeling himself while eating breakfast this morning. Denies loc and denies fevers, chills, chest pain, n/v. He denies head pin but states he feels fuzzy. Denies vision changes. He is hemodynamically stable on exam, noral sinus rhythm, stable vitals, Has no focal motor or sensation deficits and CN II-XII are intact. Unclear etiologies for his symptoms. He has an nih of 0 and no reported unilateral weakness so doubt cva. Will check for e lectrolyte abnormalities and though no chest pain will check for possible nstemi as cause of his symptoms. No hypoxia, tachycardia or evidence of dvt on exam so doubt PE and no tearing back pain so doubt dissection labs unremarkable, interrogation of device shows no acute findings. xray shows scar tissue vs mass and recommend ct, this is pending, will obtain repeat troponin. He remains stable and feels well now no symptoms cta shows large consolidation, denies any fevers or infectious symptoms, [place] [facility] [place] has been treated for cryptococcus, do not feel acute therapy indicated, he will follow up with pulmonology. Delta troponin pending pt asymptomatic and second troponin unchanged, stable for d/c and advised to f/u with pcp and return precautions given Differential Diagnosis Differential Diagnosis: anemia, svt, afib Medical Records Medical records reviewed: Yes I reviewed the patient's medical records. Imaging Data Radiologic Study: Attestation: I personally reviewed and interpreted this imaging study as follows: Imaging: X-Ray Radiologist's impression: IMPRESSION: Potential mass partly surrounding the aortic knob in the left upper lobe. This could all represent scarring however CT evaluation may be considered. Radiologic Study #2: Attestation: I personally reviewed and interpreted this imaging study as follows: Imaging: CT Scan Radiologist's impression: IMPRESSION: Dense areas of calcification bilaterally as above. Presence of air bronchograms suggests this may be inflammatory in origin however underlying neoplasm cannot be excluded. These areas of dense consolidation are new from the previous exam. Additional scattered nodules are stable. There is no evidence of acute pulmonary embolism. Lab Data Lab results reviewed: Yes I reviewed the patient's lab results. ECG Data Attestation: I personally reviewed and interpreted this ECG (s) as follows: Prior ECG tracings: not available for review Interpretation: sinus rhythm, rate of 83, no acute st t wave ischemic findings HPI General Mode of arrival: EMS . Date/Time Provider Initiated Documentation: 04/14/21 10:37 . Limitations to Documentation: no limitations . Information obtained by: patient . History of Present Illness 60 year old M presents to the emergency department with the chief complaint of didn't feel himself, described as moderate, Patient started experiencing this hour(s) (1) and it has been other (improving). No relieving factors improve symptom(s), No exacerbating factors reported . Patient notes denies chest pain, fever/chills and headaches. Patient did receive the following treatments prior to arrival, none Related Data Home Medications Medication Instructions Recorded Confirmed aspirin [Aspirin Low-Strength] 81 mg PO DAILY tab-cap 08/12/12 04/14/21 albuterol sulfate 90 mcg/actuation 1 - 2 puff INHALATION Q6H PRN #18 10/16/20 04/14/21 aerosol inhaler gm atorvastatin 40 mg tablet 40 mg PO DAILY #90 tab-cap 10/16/20 04/14/21 fluticasone propionate 115 2 puff INHALATION BID #3 inhaler 10/16/20 04/14/21 mcg-salmeterol 21 mcg/actuation HFA inhaler levothyroxine 50 mcg tablet 50 mcg PO DAILY #90 tab-cap 10/16/20 04/14/21 tiotropium bromide 18 mcg capsule 1 cap INHALATION DAILY #90 tab 10/16/20 04/14/21 with inhalation device omeprazole 20 mg capsule,delayed 20 mg PO DAILY PRN #90 tab-cap 02/26/21 04/14/21 release losartan 50 mg tablet 50 mg PO DAILY #90 tab 02/27/21 04/14/21 Previous Rx's Medication Instructions Recorded albuterol sulfate 90 mcg/actuation 1 - 2 puff INHALATION Q6H PRN #18 10/16/20 aerosol inhaler gm atorvastatin 40 mg tablet 40 mg PO DAILY #90 tab-cap 10/16/20 fluticasone propionate 115 2 puff INHALATION BID #3 inhaler 10/16/20 mcg-salmeterol 21 mcg/actuation HFA inhaler levothyroxine 50 mcg tablet 50 mcg PO DAILY #90 tab-cap 10/16/20 tiotropium bromide 18 mcg capsule 1 cap INHALATION DAILY #90 tab 10/16/20 with inhalation device omeprazole 20 mg capsule,delayed 20 mg PO DAILY PRN #90 tab-cap 02/26/21 release losartan 50 mg tablet 50 mg PO DAILY #90 tab 02/27/21 Allergies Allergy/AdvReac Type Severity Reaction Status Date / Time No Known Allergies Allergy Verified 04/14/21 10:37 General Stated Complaint: Dizzy/Sync RADHA: 3 Review of Systems All systems reviewed & are unremarkable except as noted in HPI and below Constitutional Constitutional: Denies chills, Denies fever(s) and Denies weakness Cardiovascular Cardiovascular: Denies chest pain and Denies dyspnea Respiratory Respiratory: Denies cough and Denies dyspnea Gastrointestinal Gastrointestinal: Denies abdominal pain, Denies nausea and Denies vomiting Musculoskeletal Musculoskeletal: Denies joint swelling Neurologic Neurologic: Denies weakness Psychiatric Psychiatric: Denies depression [facility] Medical History Annual physical exam (02/05/18) ASCVD (arteriosclerotic cardiovascular disease) ASCVD (arteriosclerotic cardiovascular disease) 2006 CATH; 10/2006 ECHO ABNL Duodenitis 07/26/16 Essential hypertension (04/16/13) Foul smelling urine 06/16/17 HTN (hypertension) Hyperkalemia Hyperlipidemia Hyperlipidemia Low back pain (02/05/18) Mild intermittent reactive airway disease with acute exacerbation (05/25/15) Nausea Nausea 06/18/16 Pneumonia Pulmonary cryptococcosis Reactive airway disease Sarcoidosis Sarcoidosis (11/28/09) Syncope and collapse 06/08/02 workup negative; probably vasovagal Weight loss (06/16/17) Weight loss Surgical History EGD - MAC (07/26/16) HEART CATH (~2006) S/P cardiac catheterization 06/09/16 Family History Mother Hyperlipidemia Father , SUICIDE at age 40. No problems noted. Maternal Grandfather No problems noted. Maternal Grandmother Deep venous thrombosis Paternal Grandmother Heart disease Social History (Updated 02/28/21 @ 17:39 by Hannah Rocha) Smoking/Tobacco Use Status: Never Second Hand Exposure: Yes Smoking risk assessment performed?: Yes Alcohol Intake: current Alcohol Intake frequency: holidays/special occasions only Drug use: Never Substance use type: does not use Household members: family Housing: house Number of Children: 0 Communication Needs: Corrective Lenses Do you need help understanding health information?: Rarely current occupation: Unemployed Pets and animals: Yes Pets and animals: dog(s) Current gender identity: decline to answer What is your relationship status?: never How often do you talk on the phone with friends or family?: twice per week How often do you get together with friends or relatives?: twice per week Do you belong to any clubs or organized social groups?: no Panel score (0-1 are the most socially isolated patients): 1 What type of physical activity do you participate in: none Seatbelt use: always Drive 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 Do you feel safe at home: Yes Do you feel safe in your relationship?: Yes Exam Const General: no acute distress Orientation: alert HENMT Head: normal to inspection Ears: external ears normal General nose exam: external nose normal Mouth: moist mucous membranes Eyes General: appearance normal, both eyes and all related structures Neck Neck: normal visual inspection Resp Effort & Inspection: normal respiratory effort and able to speak in complete sentences Cardio Rate: regular rate Skin General skin exam: no rashes or lesions noted Neuro General: patient alert and patient oriented x3 Extrem General: normal to inspection Psych Mental Status: mental status grossly normal Course Vital Signs Vital signs: Vital Signs Temperature 36.7 C 04/14/21 10:32 Pulse 90 04/14/21 10:32 Respiratory Rate 18 04/14/21 10:32 Blood Pressure 133/83 04/14/21 10:32 Pulse Oximetry 96 04/14/21 10:32 Temperature 36.7 C 04/14/21 10:32 Temperature Source Temporal Artery Scan 04/14/21 10:32 Pulse 90 04/14/21 10:32 Respiratory Rate 18 04/14/21 10:32 Blood Pressure 133/83 04/14/21 10:32 Blood Pressure Position Sitting 04/14/21 10:32 Pulse Oximetry 96 04/14/21 10:32 Oxygen Delivery Method Room Air 04/14/21 10:32 Oxygen Flow Rate 0 04/14/21 10:32
[2021-04-14 10:52] LABS: BE (Venous) 1 mmol/L (-2-3); HCO3 (Venous) 27 mmol/L (23-28); O2 Sat (Venous) 61 %; TCO2 (Venous) 24 mmol/L (24-29); pCO2 (Venous) 48 mmHg (41-51); pH (Venous) 7.35 (7.31-7.41); pO2 (Venous) 32 mmHg
[2021-04-14 10:53] LABS: Abs Immature Grans 0.03 10^3/uL (0.0-0.06); Absolute Basophil Count 0.07 10^3/uL (0.0-0.2); Absolute Eosinophil Count 0.48 10^3/uL (0.0-0.7); Absolute Monocyte Count 0.72 10^3/uL (0.1-0.8); Absolute Neutrophil Count 5.29 10^3/uL (1.2-6.7); Eosinophils % 6.7; HCT 41.5 % (40.0-50.0); HGB 13.6 g/dL (13.5-17.5); Immature Grans % 0.4; Lymphocytes % 8.3; MCH 28.5 pg (27.0-33.0); MCHC 32.8 % (32.0-36.0); MPV 9.1 fL (8.0-11.0); Neutrophils % 73.6; Nucleated RBC 0 %; Platelet Count 263 10^3/uL (130-400); RBC 4.77 10^6/uL (4.36-5.78); RDW 12.8 % (11.8-14.1); RDW-SD 41.1 fL; WBC 7.19 10^3/uL (4.4-10.8)
[2021-04-14 11:16] LABS: ALT 27 U/L (16-63); AST 19 U/L (15-37); Albumin 3.4 g/dL (3.4-5.0); Alkaline Phosphatase 96 U/L (46-116); Anion Gap 7.8 mmol/L (3-11); BUN 23 mg/dL (7-18); Bilirubin, Total 0.4 mg/dL (0.2-1.0); CO2 27.2 mmol/L (21.0-32.0); CREATININE 1.3 mg/dL (0.70-1.30); Calcium 8.6 mg/dL (8.5-10.1); Chloride 107 mmol/L (98-107); Estimated GFR 56.12 (mL/min/1.73m2); Glucose 97 mg/dL (74-106); Potassium 4.2 mmol/L (3.5-5.1); Sodium 142 mmol/L (136-145); TSH (W/Ref FT4) 1.58 uIU/mL (0.36-3.74); Total Protein 7.7 g/dL (6.4-8.2)
[2021-04-14 11:30] LABS: Troponin I < 0.05 ng/mL (<0.06)
--- NOTE | 2021-04-14 12:00 | DI.VRAD_ITS ---
PROCEDURE INFORMATION: Exam: XR Chest Exam date and time: 04/14/2021 10:45 AM Age: 60 years old Clinical indication: Other: ? Pneumonia TECHNIQUE: Imaging protocol: XR of the chest. Views: 1 view. COMPARISON: CR XR CHEST 2V PA LATERAL 01/14/2019 12:49 FINDINGS: Scan quality: Exam is technically satisfactory. Lungs: There is an area of relatively dense opacity in the left upper lobe surrounding the aortic knob. Patchy opacity is present in the right upper lobe. These findings are unchanged from previous exam. They are new however compared to an older chest x-ray from 06/29/2015. Pleural spaces: Unremarkable. No pleural effusion. No pneumothorax. Heart/Mediastinum: Cardiomediastinal silhouette is normal. Vasculature: Pulmonary vessels are non-engorged. Diaphragm: There is chronic elevation of the left hemidiaphragm to the hilar level. Bones/joints: Unremarkable. IMPRESSION: Potential mass partly surrounding the aortic knob in the left upper lobe. This could all represent scarring however CT evaluation may be considered. Dictated and Authenticated by: Elgin Cheema MD. Ordering:FORREST Ricks MD
[2021-04-14] MEDS: Normal Saline Flush 10 ML SYR IVP ×2 (12:15→12:19)
[2021-04-14] MEDS: Normal Saline - Diluent 50 ML VIAL IV (12:15)
[2021-04-14] MEDS: Omnipaque 350 MG/ML 100 ML BTL IJ (12:16)
--- NOTE | 2021-04-14 12:42 | DI.VRAD_ITS ---
PROCEDURE INFORMATION: Exam: CTA Chest With Contrast Exam date and time: 04/14/2021 12:01 PM Age: 60 years old Clinical indication: Other: ? Mass in upper lobe on cxr TECHNIQUE: Imaging protocol: Computed tomographic angiography of the chest with contrast. 3D rendering (Not supervised by radiologist): MIP and/or 3D reconstructed images were created by the technologist. Contrast material: OMNIPAQUE 350; Contrast volume: 100 ml; Contrast route: INTRAVENOUS (IV); COMPARISON: CT CHEST FOR PULMONARY EMBOLUS 04/04/2015 17:51 FINDINGS: Pulmonary arteries: Normal. No pulmonary emboli. Aorta: Unremarkable. No aortic aneurysm. No aortic dissection. Lungs: There is a large area of dense consolidation in the left upper lobe adjacent to the aortic knob and surrounding the right mainstem bronchus and upper lobe bronchi. Air bronchograms are present throughout. There is some central calcification. A similar area of dense consolidation is present in the right mid lung surrounding the descending bronchus. Additional scattered nodular densities are present bilaterally. Most of these were present on previous CT scan from 2014. Pleural spaces: Unremarkable. No pneumothorax. No pleural effusion. Heart: Unremarkable. No cardiomegaly. No pericardial effusion. Lymph nodes: Calcified lymph nodes are present in the mediastinum. No significant gisselle enlargement is present. Bones/joints: Unremarkable. No acute fracture. Soft tissues: Unremarkable. IMPRESSION: Dense areas of calcification bilaterally as above. Presence of air bronchograms suggests this may be inflammatory in origin however underlying neoplasm cannot be excluded. These areas of dense consolidation are new from the previous exam. Additional scattered nodules are stable. There is no evidence of acute pulmonary embolism. Dictated and Authenticated by: Elgin Cheema MD. Ordering:FORREST Ricks MD
[2021-04-14 13:54] LABS: Troponin I < 0.05 ng/mL (<0.06)
== END 2021-04-14 14:33 | disposition home or self-care (01) ==
PROVIDERS: Emergency Provider Emergency Medicine; PCP Family Medicine
DX: R41.82 Altered mental status, unspecified (principal); R91.8 Other nonspecific abnormal finding of lung field
CPT/HCPCS: 36415; 71275; 80053; 82805; 93005; 99285; 71045; 83735; 84443; 84484; 85025; 93010; J3490

== ENCOUNTER 2021-04-26 02:28 | Outpatient (CLI) | payer MEDICAID, SELFPAY ==
[2021-04-26] MEDS: Albuterol HFA 18 GM 200 PUFF INH IH (10:57)
[2021-04-26] MEDS: Inhaler, Assist Device 1 EACH MC (10:58)
--- NOTE | 2021-04-30 09:42 | W.PFT ---
Date of service: 04/26/21 Time of Service: 09:57 Pulmonary Function Test Result Requesting Provider Caryn Hammond Indications: Dyspnea Interpretation Spirometry: There is no airflow limitation. There is a restrictive pattern to spirometry. There is no significant bronchodilator effect. Lung Volumes: There is moderate restrictive lung disease Diffusion Capacity: The diffusion is reduced Airway Pressure: Airways resistance is normal Impression Moderate restrictive lung disease. Note: When compared to PFT's completed at [facility] on 08/24/18, the DLCO is reduced, and the FVC and FEV1 are reduced as well. Clinical Correlation therefore is recommended.
== END 2021-04-26 02:29 | disposition home or self-care (01) ==
LOC: RT 02:28
PROVIDERS: PCP Family Medicine; Visit Provider Family Medicine
DX: B45.0 Pulmonary cryptococcosis (principal); D86.0 Sarcoidosis of lung; J98.4 Other disorders of lung; R94.2 Abnormal results of pulmonary function studies; R06.09 Other forms of dyspnea; R05.3 Chronic cough; Z57.2 Occupational exposure to dust
CPT/HCPCS: 94060; 94726; 94729

== ENCOUNTER 2021-05-10 02:49 | Outpatient (CLI) | payer MEDICAID, SELFPAY ==
--- OUTSIDE RECORDS SUMMARY | 2021-05-10 02:52 | XMS_ITS ---
:1960 Author Care Team Providers Name Role Phone CHI DUFF Primary Care Provider [phone] [facility] RECORDS Primary Care Provider [phone] Allergies Code Code System Name Reaction Severity Status Onset NKDA ? Medications Name Status Start Date Stop Date ? ? albuterol sulf 90 mcg/actuation breath activated powde r inhaler,sensor Completed ? 05/10/2020 Inhale 2 puffs every 4 hours by inhalation route. Asprin Ec Low Dose 81 mg tablet,delayed release Active ? Not available Take 1 tablet every day by oral route. atenolol 25 mg tablet Active ? Not availa ble Take 2 tablets every day by oral route. atorvastatin 40 mg tablet Active ? Not av ailable Take 1 tablet every day by oral route. fluticasone propionate 115 mcg-salmeterol 21 mcg/actuation HFA i nhaler Active ? Not available Inhale 2 puffs twice a day by inhalation route. levothyroxine 50 mcg tablet Active ? Not available Take 1 tablet every day by oral route. Low Dose Aspirin 81 mg tablet,delayed release Active ? Not available Take 1 tablet every day by oral route. omeprazole 20 mg capsule,delayed release Active ? Not available Take 1 capsule every day by oral route. Spiriva with HandiHaler 18 mcg and inhalation capsules Active ? Not available Inhale by inhalation route. zolpidem 5 mg tablet Completed ? 09/05/2020 take 1-2 PO night of sleep study if needed Problems Name Status Onset Date Source ? Sarcoidosis Active 03/30/2020 ? Hyperlipidemia Active 03/30/2020 ? Hyperkalemia Active 03/30/2020 ? Essential Hypertension Active 03/30/2020 ? Hypertensive Disorder Active 03/30/2020 ? Coronary Arteriosclerosis Active 03/30/2020 ? Chronic Obstructive Lung Disease Active 03/30/2020 ? Duodenitis Active 03/30/2020 ? Low Back Pain Active 03/30/2020 ? Syncope Active 03/30/2020 ? Nausea Active 03/30/2020 ? Insomnia Active 05/10/2020 ? Snoring Active 05/10/2020 ? 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 Obstructive Sleep Apnea Syndrome Active ? ? Procedures Date Name Performed by ? 05/10/2020 Polysomnogram Information not avai lable Results Lab Results None recorded. Past Encounters 09/05/2020 Obstructive Sleep Apnea Syndrome; Insomn ia; Periodic Leg Movements of Sleep Mayela George [employer] WORKER: [address] [place] [phone], Ph. 06/07/2020 Obstructive Sleep Apnea Syndrome Mayela George [employer]EL[employer] WORKER: [address] [place] [phone], Ph. 05/10/2020 Snoring; Insomnia Mayela George [employer] WORK[employer]: [address] [place] [phone], Ph. Social History Tobacco Smoking Status Never Smoker Vaccine List None recorded. Plan of Care Reminders Provider Appointments None ? ? recorded. Lab None ? ? recorded. Referral None ? ? recorded. Procedures None ? ? recorded. Surgeries None ? ? recorded. Imaging None ? ? recorded. Vitals 09/05/2020 12:30PM Office 30 Height Weight BMI Blood Pressure 175.26 cm 92.99 kg 30.3 kg/m2 122/70 mm[Hg] 06/07/2020 11:00AM Office 30 Height Weight BMI Blood Pressure 175.26 cm 88.9 kg 28.9 kg/m2 118/78 mm[Hg] 05/10/2020 12:30PM New Patient 44 Height Weight BMI Blood Pressure 175.26 cm 90.22 kg 29.4 kg/m2 120/80 mm[Hg]
[2021-05-10 11:14] LABS: HCT 41.4 % (40.0-50.0); HGB 13.5 g/dL (13.5-17.5); MCH 28.5 pg (27.0-33.0); MCHC 32.6 % (32.0-36.0); MCV 87.3 fL (80-95); MPV 9.7 fL (8.0-11.0); Platelet Count 266 10^3/uL (130-400); RBC 4.74 10^6/uL (4.36-5.78); RDW 13.2 % (11.8-14.1); RDW-SD 41.8 fL; WBC 7.22 10^3/uL (4.4-10.8)
[2021-05-10 12:26] LABS: ALT 28 U/L (16-63); AST 18 U/L (15-37); Albumin 3.6 g/dL (3.4-5.0); Alkaline Phosphatase 98 U/L (46-116); Anion Gap 7.9 mmol/L (3-11); BUN 18 mg/dL (7-18); Bilirubin, Total 0.5 mg/dL (0.2-1.0); CO2 28.1 mmol/L (21.0-32.0); CREATININE 1.2 mg/dL (0.70-1.30); Chloride 103 mmol/L (98-107); Glucose 104 mg/dL (74-106); Potassium 4.1 mmol/L (3.5-5.1); Sodium 139 mmol/L (136-145); TSH (W/Ref FT4) 1.98 uIU/mL (0.36-3.74); Total Protein 7.4 g/dL (6.4-8.2)
== END 2021-05-10 02:50 | disposition home or self-care (01) ==
LOC: LOS 02:50
PROVIDERS: PCP Family Medicine; Visit Provider Family Medicine
DX: I10 Essential (primary) hypertension; R63.4 Abnormal weight loss; B45.0 Pulmonary cryptococcosis; G47.9 Sleep disorder, unspecified; E03.9 Hypothyroidism, unspecified
CPT/HCPCS: 36415; 80053; 85027; 84443

== ENCOUNTER 2021-06-22 11:55 | Outpatient (REF) | payer MEDICAID, SELFPAY ==
[2021-06-22 13:05] LABS: Prothrombin Time 10.4 sec (9.3-11.0)
== END 2021-06-22 11:56 | disposition home or self-care (01) ==
LOC: LBN 11:55
PROVIDERS: PCP Family Medicine; Visit Provider Student in an Organized Health Care Education/Training Program
DX: J84.10 Pulmonary fibrosis, unspecified (principal)
CPT/HCPCS: 85610

== ENCOUNTER 2021-08-22 17:18 | Outpatient (REF) | payer MEDICAID, SELFPAY ==
[2021-08-22 12:25] LABS: Abs Immature Grans 0.07 10^3/uL (0.0-0.06); Absolute Basophil Count 0.06 10^3/uL (0.0-0.2); Absolute Eosinophil Count 0.17 10^3/uL (0.0-0.7); Absolute Lymphocyte Count 0.57 10^3/uL (1.2-3.4); Absolute Monocyte Count 0.88 10^3/uL (0.1-0.8); Absolute Neutrophil Count 7.36 10^3/uL (1.2-6.7); Basophils % 0.7; Eosinophils % 1.9; HCT 41.5 % (40.0-50.0); HGB 13.8 g/dL (13.5-17.5); Immature Grans % 0.8; Lymphocytes % 6.3; MCH 28.9 pg (27.0-33.0); MCHC 33.3 % (32.0-36.0); MPV 9.3 fL (8.0-11.0); Monocytes % 9.7; Neutrophils % 80.6; Nucleated RBC 0 %; Platelet Count 271 10^3/uL (130-400); RBC 4.77 10^6/uL (4.36-5.78); RDW 14.2 % (11.8-14.1); RDW-SD 45.2 fL; WBC 9.11 10^3/uL (4.4-10.8)
[2021-08-22 12:47] LABS: ALT 41 U/L (16-63); AST 19 U/L (15-37); Albumin 3.4 g/dL (3.4-5.0); Alkaline Phosphatase 70 U/L (46-116); Anion Gap 8.4 mmol/L (3-11); BUN 12 mg/dL (7-18); Bilirubin, Total 0.6 mg/dL (0.2-1.0); CO2 25.6 mmol/L (21.0-32.0); CREATININE 1.2 mg/dL (0.70-1.30); Calcium 8.4 mg/dL (8.5-10.1); Chloride 106 mmol/L (98-107); Glucose 124 mg/dL (74-106); Potassium 4.4 mmol/L (3.5-5.1); Sodium 140 mmol/L (136-145); Total Protein 6.6 g/dL (6.4-8.2)
== END 2021-08-22 17:19 | disposition home or self-care (01) ==
LOC: LBN 17:18
PROVIDERS: PCP Family Medicine; Visit Provider Student in an Organized Health Care Education/Training Program
DX: Z79.899 Other long term (current) drug therapy (principal)
CPT/HCPCS: 80053; 85025

== ENCOUNTER 2021-09-18 10:53 | Outpatient (REF) | payer MEDICAID, SELFPAY ==
[2021-09-18 12:40] LABS: ALT 38 U/L (16-63); AST 24 U/L (15-37); Albumin 3.5 g/dL (3.4-5.0); Alkaline Phosphatase 102 U/L (46-116); Anion Gap 7.4 mmol/L (3-11); BUN 15 mg/dL (7-18); Bilirubin, Total 0.5 mg/dL (0.2-1.0); CO2 28.6 mmol/L (21.0-32.0); Calcium 8.7 mg/dL (8.5-10.1); Chloride 105 mmol/L (98-107); Glucose 86 mg/dL (74-106); Potassium 4.2 mmol/L (3.5-5.1); Sodium 141 mmol/L (136-145); Total Protein 6.8 g/dL (6.4-8.2)
== END 2021-09-18 10:54 | disposition home or self-care (01) ==
LOC: LBN 10:53
PROVIDERS: PCP Family Medicine; Visit Provider Student in an Organized Health Care Education/Training Program
DX: D86.0 Sarcoidosis of lung (principal); B45.0 Pulmonary cryptococcosis; Z51.81 Encounter for therapeutic drug level monitoring
CPT/HCPCS: 80053

== ENCOUNTER 2021-10-19 18:33 | Outpatient (REF) | payer MEDICAID, SELFPAY ==
[2021-10-19 10:45] LABS: ALT 28 U/L (16-63); AST 21 U/L (15-37); Albumin 3.6 g/dL (3.4-5.0); Alkaline Phosphatase 99 U/L (46-116); Anion Gap 9.8 mmol/L (3-11); BUN 15 mg/dL (7-18); Bilirubin, Total 0.6 mg/dL (0.2-1.0); CO2 24.2 mmol/L (21.0-32.0); CREATININE 1.1 mg/dL (0.70-1.30); Calcium 8.6 mg/dL (8.5-10.1); Chloride 106 mmol/L (98-107); Glucose 131 mg/dL (74-106); Sodium 140 mmol/L (136-145); Total Protein 6.9 g/dL (6.4-8.2)
== END 2021-10-19 18:34 | disposition home or self-care (01) ==
LOC: LBN 18:33
PROVIDERS: PCP Family Medicine; Visit Provider Student in an Organized Health Care Education/Training Program
DX: J98.4 Other disorders of lung (principal); J84.10 Pulmonary fibrosis, unspecified; B45.0 Pulmonary cryptococcosis; D86.9 Sarcoidosis, unspecified; Z79.899 Other long term (current) drug therapy
CPT/HCPCS: 80053

== ENCOUNTER 2021-11-19 04:08 | Outpatient (CLI) | payer MEDICAID, SELFPAY ==
[2021-11-19 15:30] LABS: Calculated LDL 74 mg/dL (<100); Cholesterol 141 mg/dL (<200); HDL Cholesterol 39 mg/dL (40-60); Triglyceride 140 mg/dL (<150)
== END 2021-11-19 04:09 | disposition home or self-care (01) ==
LOC: LOS 04:08
PROVIDERS: PCP Family Medicine; Visit Provider Family Medicine
DX: Z00.00 Encounter for general adult medical examination without abnormal findings (principal); Z13.220 Encounter for screening for lipoid disorders
CPT/HCPCS: 36415; 80061

== ENCOUNTER 2022-01-22 10:46 | Outpatient (REF) | payer MEDICAID, SELFPAY ==
[2022-01-22 11:43] LABS: Abs Immature Grans 0.02 10^3/uL (0.0-0.06); Absolute Basophil Count 0.09 10^3/uL (0.0-0.2); Absolute Eosinophil Count 0.44 10^3/uL (0.0-0.7); Absolute Monocyte Count 0.79 10^3/uL (0.1-0.8); Absolute Neutrophil Count 5.69 10^3/uL (1.2-6.7); Basophils % 1.2; Eosinophils % 5.8; HGB 14.7 g/dL (13.5-17.5); Immature Grans % 0.3; Lymphocytes % 7.9; MCH 28.8 pg (27.0-33.0); MCHC 32.7 % (32.0-36.0); MCV 88 fL (80-95); MPV 9.5 fL (8.0-11.0); Monocytes % 10.4; Neutrophils % 74.4; Platelet Count 319 10^3/uL (130-400); RBC 5.11 10^6/uL (4.36-5.78); RDW 13.8 % (11.8-14.1); RDW-SD 44.4 fL; WBC 7.63 10^3/uL (4.4-10.8)
[2022-01-22 11:53] LABS: ALT 21 U/L (16-63); AST 19 U/L (15-37); Albumin 3.4 g/dL (3.4-5.0); Alkaline Phosphatase 100 U/L (46-116); Anion Gap 9.1 mmol/L (3-11); BUN 16 mg/dL (7-18); Bilirubin, Total 0.7 mg/dL (0.2-1.0); CO2 25.9 mmol/L (21.0-32.0); CREATININE 1.1 mg/dL (0.70-1.30); Calcium 8.8 mg/dL (8.5-10.1); Chloride 104 mmol/L (98-107); Glucose 116 mg/dL (74-106); Potassium 3.9 mmol/L (3.5-5.1); Sodium 139 mmol/L (136-145); Total Protein 7.8 g/dL (6.4-8.2)
== END 2022-01-22 10:47 | disposition home or self-care (01) ==
LOC: LBN 10:46
PROVIDERS: PCP Family Medicine; Visit Provider Student in an Organized Health Care Education/Training Program
DX: Z51.81 Encounter for therapeutic drug level monitoring (principal)
CPT/HCPCS: 80053; 85025

== ENCOUNTER 2022-01-24 04:13 | Outpatient (CLI) | payer MEDICAID, SELFPAY ==
[2022-01-24] MEDS: Albuterol HFA 18 GM 200 PUFF INH IH (11:55)
[2022-01-24] MEDS: Inhaler, Assist Device 1 EACH MC (11:56)
--- NOTE | 2022-01-25 15:34 | W.PFT ---
Date of service: 01/24/22 Time of Service: 10:34 Pulmonary Function Test Result Requesting Provider Noam Indications: Sarcoidosis Interpretation Spirometry: There is restrictive appearing spirometry with no airflow limitation. There is no significant bronchodilator response. Lung Volumes: There is moderate restrictive lung disease Diffusion Capacity: The diffusion is reduced Airway Pressure: Normal airways resistance Impression Moderate restrictive lung disease with a reduced diffusion. Note: When compared to 04/26/21, the FEV1 and FVC are essentially unchanged. The TLC is clightly improved and the DLCO is slightly worse. Clinical Correlation therefore is recommended.
== END 2022-01-24 04:14 | disposition home or self-care (01) ==
PROVIDERS: PCP Family Medicine; Visit Provider Student in an Organized Health Care Education/Training Program
DX: R94.2 Abnormal results of pulmonary function studies (principal); D86.9 Sarcoidosis, unspecified; R06.09 Other forms of dyspnea; R05.9 Cough, unspecified
CPT/HCPCS: 94060; 94726; 94729

== ENCOUNTER → 2022-04-18 02:43 | Outpatient (CLI) | payer MEDICAID, SELFPAY ==
--- NOTE | 2022-04-18 07:30 | DI.CT_ITS ---
Exam(s) CT CHEST WO EXAM: CT CHEST WO CLINICAL HISTORY: f/u fibrosis, lung mass,j84.10. TECHNIQUE: Imaging protocol: Axial computed tomography images were obtained and coronal and sagittal reformatted images were created and reviewed. COMPARISON: CT CT CHEST PE CTA from 04/14/2021 FINDINGS: Tracheobronchial tree: Patent where visualized. Pulmonary parenchyma: There again seen multiple pulmonary nodules. There is also again seen dense co nsolidation in the perihilar regions bilaterally with volume loss and bronchiectasis. There has been worsening loss of volume in the left upper lobe. Mediastinum and Carmen: There again seen numerous calcified mediastinal and hilar lymph nodes. Calcifi ed lymph nodes are also seen below the diaphragm. The esophagus is unremarkable. Thyroid gland: Unremarkable. Pleura: No effusion or pneumothorax. Heart: The heart is not dilated. Mild coronary artery calcification is present. No pericardial effus ion. Aorta: Thoracic aorta non-dilated. Atherosclerosis is present. Upper abdomen: Unremarkable. Lymph nodes: No significant axillary adenopathy is present. Soft tissues: Unremarkable. There is elevation again seen of the left hemidiaphragm. Bones:Within normal limits for the patient's age. IMPRESSION: 1. There again seen multiple pulmonary nodules, mediastinal and hilar adenopathy, upper abdominal marium nopathy and bilateral bilateral perihilar opacities. There is been slight progression of the loss of volume in the left upper lobe since the prior examination. RADIATION DOSE DELIVERED: 568.38mGy.cm Total DLP 568.38mGy.cm Total DLP DATA REPOSITORY: All CT scans at this facility are submitted to the National Radiology Data Registry (NRDR) Dose Index Registry (DIR) with the [employer] ([employer]). RADIATION OPTIMIZATION: All CT scans at this facility use at least one of these dose optimization te chniques: automated exposure control; mA and/or kV adjustment per patient size (includes targeted exa ms where dose is matched to clinical indication); or iterative reconstruction.
== END ==
PROVIDERS: PCP Family Medicine; Visit Provider Student in an Organized Health Care Education/Training Program
DX: J84.10 Pulmonary fibrosis, unspecified (principal); R91.8 Other nonspecific abnormal finding of lung field
CPT/HCPCS: 71250

== ENCOUNTER 2022-04-30 15:54 | Outpatient (CLI) | payer MEDICAID, SELFPAY ==
[2022-04-30 17:22] LABS: ALT 17 U/L (16-63); AST 21 U/L (15-37); Albumin 3.4 g/dL (3.4-5.0); Alkaline Phosphatase 95 U/L (46-116); Anion Gap 6.8 mmol/L (3-11); BUN 15 mg/dL (7-18); Bilirubin, Total 0.5 mg/dL (0.2-1.0); CO2 29.2 mmol/L (21.0-32.0); Calcium 8.5 mg/dL (8.5-10.1); Chloride 102 mmol/L (98-107); Glucose 80 mg/dL (74-106); Potassium 4.1 mmol/L (3.5-5.1); Sodium 138 mmol/L (136-145)
== END 2022-04-30 15:55 | disposition home or self-care (01) ==
LOC: LBN 15:55
PROVIDERS: PCP Family Medicine; Visit Provider Student in an Organized Health Care Education/Training Program
DX: J84.10 Pulmonary fibrosis, unspecified (principal); D86.0 Sarcoidosis of lung; J98.4 Other disorders of lung; J98.6 Disorders of diaphragm; B45.0 Pulmonary cryptococcosis
CPT/HCPCS: 80053

== ENCOUNTER 2022-09-26 03:43 | Outpatient (CLI) | payer MEDICAID, SELFPAY ==
[2022-09-26] MEDS: Albuterol HFA 18 GM 200 PUFF INH IH (08:41)
[2022-09-26] MEDS: Inhaler, Assist Device 1 EACH MC (08:42)
--- NOTE | 2022-09-26 15:24 | W.PFT ---
Date of service: 09/26/22 Time of Service: 08:01 Pulmonary Function Test Result Indications: Sarcoidosis Interpretation Spirometry: There is no airflow limitation. Spirometry appears restrictive. No bronchodilator response. Impression Restrictive appearing spirometry Note: When compared to 01/24/22 FVC has decreased by 100cc Clinical Correlation therefore is recommended.
== END 2022-09-26 03:44 | disposition home or self-care (01) ==
LOC: RT 03:43
PROVIDERS: PCP Family Medicine; Visit Provider Student in an Organized Health Care Education/Training Program
DX: D86.9 Sarcoidosis, unspecified (principal)
CPT/HCPCS: 94060

== ENCOUNTER 2022-10-28 15:05 | Outpatient (CLI) | payer MEDICAID, SELFPAY ==
[2022-10-28 14:11] LABS: Abs Immature Grans 0.04 10^3/uL (0.0-0.06); Absolute Basophil Count 0.06 10^3/uL (0.0-0.2); Absolute Eosinophil Count 0.49 10^3/uL (0.0-0.7); Absolute Lymphocyte Count 0.68 10^3/uL (1.2-3.4); Absolute Monocyte Count 0.81 10^3/uL (0.1-0.8); Absolute Neutrophil Count 6.56 10^3/uL (1.2-6.7); Basophils % 0.7; Eosinophils % 5.7; HCT 44.3 % (40.0-50.0); HGB 14.4 g/dL (13.5-17.5); Immature Grans % 0.5; Lymphocytes % 7.9; MCH 28.9 pg (27.0-33.0); MCHC 32.5 % (32.0-36.0); MCV 89 fL (80-95); MPV 9.2 fL (8.0-11.0); Monocytes % 9.4; Neutrophils % 75.8; Platelet Count 253 10^3/uL (130-400); RBC 4.98 10^6/uL (4.36-5.78); RDW 13.9 % (11.8-14.1); RDW-SD 44.8 fL; WBC 8.64 10^3/uL (4.4-10.8)
[2022-10-28 14:46] LABS: ALT 22 U/L (16-63); AST 22 U/L (15-37); Albumin 3.5 g/dL (3.4-5.0); Alkaline Phosphatase 96 U/L (46-116); Anion Gap 6.4 mmol/L (3-11); BUN 20 mg/dL (7-18); Bilirubin, Total 0.5 mg/dL (0.2-1.0); CO2 26.6 mmol/L (21.0-32.0); CREATININE 1.1 mg/dL (0.70-1.30); Chloride 105 mmol/L (98-107); Estimated GFR 75.43 (mL/min/1.73m2); Glucose 96 mg/dL (74-106); Potassium 4.2 mmol/L (3.5-5.1); Sodium 138 mmol/L (136-145)
== END 2022-10-28 15:06 | disposition home or self-care (01) ==
LOC: LBO 15:06
PROVIDERS: PCP Family Medicine; Visit Provider Physician Assistant Surgical
DX: J84.10 Pulmonary fibrosis, unspecified (principal); J98.4 Other disorders of lung; J98.6 Disorders of diaphragm
CPT/HCPCS: 36415; 80053; 85025

== ENCOUNTER 2023-04-29 07:42 | Emergency (ER) | payer MEDICAID, SELFPAY ==
[2023-04-29 07:45] VITALS: BP 150/71; PULSE 99; RESP 16; TEMP 36.8; O2SAT 99
[2023-04-29 07:52] VITALS: BP 150/71; PULSE 99; RESP 16; TEMP 36.8; O2SAT 99
--- NOTE | 2023-04-29 08:36 | ED.GENADUL_ITS ---
Discharge Plan Disposition Patient Disposition: Home Discharge Details Clinical Impression: Edmondson's palsy Primary Care Provider: Caryn Hammond ED Provider: Jackie Madrid Home Meds and New Rx's Prescriptions: New prednisone 20 mg tablet 60 mg PO DAILY 7 Days Qty: 21 0RF valacyclovir [Valtrex] 1 gram tablet 1,000 mg PO TID 7 Days Qty: 21 0RF doxycycline hyclate 100 mg tablet,delayed release (DR/EC) 100 mg PO BID Qty: 28 0RF Continued loperamide [Imodium A-D] 2 mg tablet 2 mg PO Q4H PRN (Reason: loose stool) Qty: 90 4RF Rx Instructions: administer after each loose stool until symptoms controlled; do not exceed 8 mg per 24 hrs Ofev 150 mg capsule 150 mg PO Q12H Qty: 60 12RF metoprolol succinate 50 mg tablet extended release 24 hr 25 mg PO DAILY nintedanib 100 mg capsule 100 mg PO Q12H Qty: 60 12RF aspirin [Aspirin Low-Strength] 81 MG tablet,chewable 81 mg PO DAILY albuterol sulfate [ProAir HFA] 90 mcg/actuation HFA aerosol inhaler 1 - 2 puff Inhalation Q6H PRN Qty: 18 5RF atorvastatin 40 mg tablet 40 mg PO DAILY Qty: 90 4RF levothyroxine 50 mcg tablet 50 mcg PO DAILY Qty: 90 3RF fluticasone propion-salmeterol [Advair HFA] 115-21 mcg/actuation HFA aerosol inhaler 2 puff Inhalation BID Qty: 3 12RF omeprazole 20 mg capsule,delayed release(DR/EC) 20 mg PO DAILY PRN (Reason: gastric reflux) Qty: 90 3RF Discharge Instructions Additional Instructions: Follow-up with pulmonology at your appointment today I have already drawn your blood work Take the doxycycline for the next 2 weeks to treat for potential Lyme disease, your Lyme titer is pending Use artificial tears lubricating ointment on your eye while awake every hour to At night use artificial tears and tape your left eyelid shut so that it does not become dry and irritated as you were unable to close your eye I am listing dental resources for you although I think the source of your facial droop is a Edmondson's palsy which can sometimes be related to Lyme disease, we will notify you if you are positive but you are on appropriate treatment Yogurt daily while taking the doxycycline Please return should you develop worsening symptoms, headache, vision change, nausea, vomiting, or with any new or worsening complaints You are on a 1 week course of steroid, this can cause some insomnia I recommend taking it in the morning You are also on a medication called Valtrex, this will potentially help resolve your symptoms earlier Referrals: Caryn Hammond MD, [place] [Primary Care Provider] - Medical Decision Making 62-year-old gentleman presenting with left facial droop which was present this morning when he awoke with gradual onset of symptoms over the course of 48 hours per patient On exam, upper and lower motor neuron involvement consistent with a likely Edmondson's palsy, remainder of neurological exam is completely intact and no evidence of central process clinically Patient has tearing from the left eye and is unable to close the lid completely, there is no obvious evidence of acute abscess intraorally although patient's initial presenting complaint was that he has a dental abscess He does not endorse any chest pain or shortness of breath I did check basic labs because patient was scheduled to go to pulmonology later today and there is a tick panel that is pending, patient is treated empirically for Lyme and will receive prednisone 60 mg for 7 days, doxycycline 100 mg twice daily for 14 days, and Valtrex 1000 mg 3 times daily for 7 days He is encouraged to go to his pulmonology appointment later today given his pulmonary fibrosis history and to follow-up with his primary care physician in the outpatient setting within the next week Again my suspicion that this is a central process is very low, his presentation is consistent with a peripheral process and exam consistent with Edmondson's palsy HPI General Date/Time Provider Initiated Documentation: 04/29/23 08:06 . HPI Narrative: 62-year-old gentleman with history of pulmonary fibrosis, hemidiaphragm, restrictive lung disease presents with report of gradual onset of left facial droop, difficulty chewing and swallowing secondary to left facial droop. Denies any headache but has had some intermittent sharp sensation on the left side of his face. States that started about 48 hours ago he noticed that he had some tearing and could not close his left eye. He denies known tick bites. He denies fever or stiff neck. He denies any trauma or injuries. He denies history of herpes or rashes. He also states he had some dental pain. He denies any difficulty swallowing or shortness of breath. He denies any chest discomfort. Denies any fever or chills. Related Data Home Medications Medication Instructions Recorded Confirmed aspirin 81 mg chewable tablet 81 mg PO DAILY 08/12/12 04/29/23 (Aspirin Low-Strength) nintedanib 150 mg capsule (Ofev) 150 mg PO Q12H #60 caps 06/26/21 04/29/23 albuterol sulfate 90 mcg/actuation 1 - 2 puff inhalation Q6H PRN #18 10/23/21 04/29/23 aerosol inhaler (ProAir HFA) grams loperamide 2 mg tablet (Imodium 2 mg PO Q4H PRN loose stool #90 03/04/22 04/29/23 A-D) tabs atorvastatin 40 mg tablet 40 mg PO DAILY #90 tab-caps 04/29/22 04/29/23 fluticasone propionate 115 2 puff inhalation BID ##3 08/14/22 04/29/23 mcg-salmeterol 21 mcg/actuation HFA inhaler (Advair HFA) levothyroxine 50 mcg tablet 50 mcg PO DAILY #90 tab-caps 08/14/22 04/29/23 omeprazole 20 mg capsule,delayed 20 mg PO DAILY PRN gastric reflux 08/14/22 04/29/23 release #90 tab-caps metoprolol succinate 50 mg 25 mg PO DAILY 10/28/22 04/29/23 tablet,extended release 24 hr nintedanib 100 mg capsule 100 mg PO Q12H #60 caps 10/28/22 04/29/23 doxycycline hyclate 100 mg 100 mg PO BID #28 tabs 04/29/23 tablet,delayed release prednisone 20 mg tablet 60 mg (3 x 20 mg) PO DAILY 7 days 04/29/23 #21 tabs valacyclovir 1 gram tablet 1,000 mg PO TID 7 days #21 tabs 04/29/23 (Valtrex) Previous Rx's Medication Instructions Recorded nintedanib 150 mg capsule (Ofev) 150 mg PO Q12H #60 caps 06/26/21 albuterol sulfate 90 mcg/actuation 1 - 2 puff inhalation Q6H PRN #18 10/23/21 aerosol inhaler (ProAir HFA) grams loperamide 2 mg tablet (Imodium 2 mg PO Q4H PRN loose stool #90 03/04/22 A-D) tabs atorvastatin 40 mg tablet 40 mg PO DAILY #90 tab-caps 04/29/22 fluticasone propionate 115 2 puff inhalation BID ##3 08/14/22 mcg-salmeterol 21 mcg/actuation HFA inhaler (Advair HFA) levothyroxine 50 mcg tablet 50 mcg PO DAILY #90 tab-caps 08/14/22 omeprazole 20 mg capsule,delayed 20 mg PO DAILY PRN gastric reflux 08/14/22 release #90 tab-caps nintedanib 100 mg capsule 100 mg PO Q12H #60 caps 10/28/22 doxycycline hyclate 100 mg 100 mg PO BID #28 tabs 04/29/23 tablet,delayed release prednisone 20 mg tablet 60 mg (3 x 20 mg) PO DAILY 7 days 04/29/23 #21 tabs valacyclovir 1 gram tablet 1,000 mg PO TID 7 days #21 tabs 04/29/23 (Valtrex) Allergies Allergy/AdvReac Type Severity Reaction Status Date / Time No Known Allergies Allergy Verified 04/29/23 07:55 General Stated Complaint: DentalOral RADHA: 4 PFSH All Active Problems (Updated 06/21/21 @ 09:14 by Sandra Santacruz MD) Massive fibrosis of lung (Acute) Elevated hemidiaphragm (Acute) Restrictive lung disease (Acute) Abnormal x-ray (Acute) Shoulder pain, right (Acute) CPAP (continuous positive airway pressure) dependence (Acute) Restless leg (Acute) Mobitz (type) I (Wenckebach's) atrioventricular block (Acute) Sleep disorder (Acute) Spell of altered cognition (Acute) Encounter for annual physical exam (Acute) Syncope (Chronic) Medication monitoring encounter (Acute) Duodenitis (Chronic 07/26/16) Pulmonary cryptococcosis (Acute) Hypothyroidism (Chronic) Weight loss (Chronic 06/16/17) Sarcoidosis (Chronic 11/28/09) Low back pain (Chronic 02/05/18) Hyperlipidemia (Chronic) Essential hypertension (Chronic 04/16/13) Medical History (Updated 06/21/21 @ 09:14 by Sandra Santacruz MD) Weight loss Pneumonia Hyperkalemia Syncope and collapse 06/08/02 workup negative; probably vasovagal Nausea 06/18/16 Duodenitis 07/26/16 Foul smelling urine 06/16/17 Mild intermittent reactive airway disease with acute exacerbation (05/25/15) Annual physical exam (02/05/18) ASCVD (arteriosclerotic cardiovascular disease) 2006 CATH; 10/2006 ECHO ABNL Nausea HTN (hypertension) Sarcoidosis Hyperlipidemia ASCVD (arteriosclerotic cardiovascular disease) Reactive airway disease Surgical History S/P cardiac catheterization 06/09/16 HEART CATH (~2006) EGD - MAC (07/26/16) Family History Mother Hyperlipidemia Father , SUICIDE at age 40. No problems noted. Maternal Grandfather No problems noted. Maternal Grandmother Deep venous thrombosis Paternal Grandmother Heart disease Social History (Updated 03/12/22 @ 06:30 by Mckayla Champagne) Smoking/Tobacco Use Status: Never Second Hand Exposure: Yes Smoking risk assessment performed?: Yes Alcohol Intake: current Alcohol Intake frequency: holidays/special occasions only Alcohol type: beer Drug use: Never Substance use type: does not use Household members: family Housing: house Number of Children: 0 Communication Needs: Corrective Lenses Do you need help understanding health information?: Rarely current occupation: Unemployed Pets and animals: No Sexually active: No What is your relationship status?: never How often do you talk on the phone with friends or family?: once per week How often do you get together with friends or relatives?: once per week How often do you attend orthodox or temple services?: decline to answer Do you belong to any clubs or organized social groups?: no Panel score (0-1 are the most socially isolated patients): 0 What type of physical activity do you participate in: none Lyndsey/Roman Catholic: No preference Seatbelt use: always Drive intox or ride w/intox bookmobile driver: No Do you feel safe at home: Yes Do you feel safe in your relationship?: Yes Course Vital Signs Vital signs: Vital Signs Temperature 36.8 C 04/29/23 07:45 Pulse 99 H 04/29/23 07:45 Respiratory Rate 16 04/29/23 07:45 Blood Pressure 150/71 H 04/29/23 07:45 Pulse Oximetry 99 04/29/23 07:45 Temperature 36.8 C 04/29/23 07:52 Temperature Source Oral 04/29/23 07:52 Pulse 99 H 04/29/23 07:52 Respiratory Rate 16 04/29/23 07:52 Respiratory Effort Normal, Non-Labored 04/29/23 07:52 Blood Pressure 150/71 H 04/29/23 07:52 Blood Pressure Position Sitting 04/29/23 07:52 Pulse Oximetry 99 04/29/23 07:52 Oxygen Delivery Method Room Air 04/29/23 07:52 Oxygen Flow Rate 0 04/29/23 07:45 Pain Level 0 04/29/23 07:52
[2023-04-29 08:51] LABS: Abs Immature Grans 0.03 10^3/uL (0.0-0.06); Absolute Basophil Count 0.06 10^3/uL (0.0-0.2); Absolute Eosinophil Count 0.21 10^3/uL (0.0-0.7); Absolute Lymphocyte Count 0.57 10^3/uL (1.2-3.4); Absolute Monocyte Count 0.75 10^3/uL (0.1-0.8); Absolute Neutrophil Count 8.12 10^3/uL (1.2-6.7); Basophils % 0.6; Eosinophils % 2.2; HCT 45.5 % (40.0-50.0); HGB 14.9 g/dL (13.5-17.5); Immature Grans % 0.3; Lymphocytes % 5.9; MCH 28.5 pg (27.0-33.0); MCHC 32.7 % (32.0-36.0); MCV 87 fL (80-95); MPV 9.3 fL (8.0-11.0); Monocytes % 7.7; Neutrophils % 83.3; Platelet Count 297 10^3/uL (130-400); RBC 5.22 10^6/uL (4.36-5.78); RDW 13.6 % (11.8-14.1); RDW-SD 43.5 fL; WBC 9.74 10^3/uL (4.4-10.8)
[2023-04-29 09:09] LABS: ALT 22 U/L (16-63); AST 18 U/L (15-37); Albumin 3.8 g/dL (3.4-5.0); Alkaline Phosphatase 95 U/L (46-116); Anion Gap 5.7 mmol/L (3-11); BUN 18 mg/dL (7-18); Bilirubin, Total 0.8 mg/dL (0.2-1.0); CO2 28.3 mmol/L (21.0-32.0); CREATININE 1.1 mg/dL (0.70-1.30); Calcium 9.5 mg/dL (8.5-10.1); Chloride 102 mmol/L (98-107); Estimated GFR 75.43 (mL/min/1.73m2); Glucose 105 mg/dL (74-106); Potassium 4.2 mmol/L (3.5-5.1); Sodium 136 mmol/L (136-145); Total Protein 8.6 g/dL (6.4-8.2)
[2023-04-29 09:25] VITALS: BP 133/84; PULSE 90; RESP 12; O2SAT 98
[2023-04-30 10:32] LABS: Lyme Ab w Rflx to Lyme Confirm Negative (Negative)
[2023-05-01 22:32] LABS: Anaplasma phagocytophilum Negative (Negative); B. miyamotoi PCR Negative (Negative); Babesia divergens/MO-1 Negative (Negative); Babesia duncani Negative (Negative); Babesia microti Negative (Negative); Ehrlichia chaffeensis Negative (Negative); Ehrlichia ewingii/canis Negative (Negative); Ehrlichia muris eauclairensis Negative (Negative)
== END 2023-04-29 09:27 | disposition home or self-care (01) ==
LOC: ER 09:07
PROVIDERS: Emergency Provider Physician Assistant; PCP Family Medicine
DX: G51.0 Bell's palsy; K08.89 Other specified disorders of teeth and supporting structures; I10 Essential (primary) hypertension; E03.9 Hypothyroidism, unspecified; E78.5 Hyperlipidemia, unspecified; Z79.899 Other long term (current) drug therapy; Z79.82 Long term (current) use of aspirin; J84.10 Pulmonary fibrosis, unspecified
CPT/HCPCS: 80053; 87798; 99283; 85025; 86618; 99284

== ENCOUNTER 2023-05-09 15:16 | Emergency (ER) | payer MEDICAID, SELFPAY ==
--- NOTE | 2023-05-09 15:15 | RT.EKG_ITS ---
APPROVED REPORT Exam: Resting ECG Reason for Exam: Possible stroke Patient Location: E HR:63 bpm ECG Measurements Heart Rate 63 AXIS AL 203 P 48 QRSd 91 QRS 53 QT 428 T 56 QTc 437 Conclusion Sinus rhythm normal xis no acute ST segment changes
[2023-05-09 15:23] VITALS: BP 139/81; PULSE 63; RESP 20; TEMP 36.9; O2SAT 99
[2023-05-09 15:28] VITALS: RESP 20
--- NOTE | 2023-05-09 15:52 | W.ED.GENAD ---
Discharge Plan Discharge Details Chief Complaint: GenMedical Primary Care Provider: Caryn Hammond ED Provider: Logan Knight [facility] [place] Meds and New Rx's Prescriptions: No Action valacyclovir [Valtrex] 1 gram tablet 1,000 mg PO DAILY doxycycline hyclate 100 mg capsule 100 mg PO DAILY prednisolone 5 mg tablet 20 mg PO DAILY fluticasone propion-salmeterol [Advair HFA] 115-21 mcg/actuation HFA aerosol inhaler 2 inh inhalation ONCE aspirin 81 mg capsule 81 mg PO DAILY atorvastatin 40 mg tablet 40 mg PO DAILY metoprolol succinate 50 mg tablet extended release 24 hr 50 mg PO DAILY omeprazole 20 mg capsule,delayed release(DR/EC) 20 mg PO DAILY PRN loperamide [Imodium A-D] 2 mg capsule 2 mg PO Q6H PRN levothyroxine [Euthyrox] 50 mcg tablet 50 mcg PO DAILY albuterol sulfate [Proventil HFA] 90 mcg/actuation HFA aerosol inhaler 2 inh inhalation Q8H PRN Medical Decision Making Emergent evaluation of some abdominal pain and unwell feeling. Patient has a normal exam at this time. He recently has a diagnosis of Edmondson's palsy and has received treatment for that. He still obviously has symptoms. During my evaluation he had a wave of this symptom that he localized to the periumbilical abdominal area however did not really have significant abdominal tenderness guarding or rebound on exam. IV fluids given, plan for lab work. Lab work reviewed, he has a leukocytosis which could be secondary to his recent steroid use. Patient has significantly elevated lipase on exam. I feel his symptoms are likely secondary to pancreatitis. Will plan for IV fluids. And admission for monitoring of symptoms. Medical Records Medical records reviewed: Yes I reviewed the patient's medical records. Lab Data Lab results reviewed: Yes I reviewed the patient's lab results. HPI General Date/Time Provider Initiated Documentation: 05/09/23 15:31. Limitations to Documentation: no limitations. Information obtained by: patient. HPI Narrative: 62-year-old gentleman with out known medical history presents for evaluation of weakness and a abdominal discomfort. He reports that it comes in waves he has some pain in his abdomen, he does not really describe it as pain but just a discomfort feeling. Because he was feeling so bad, he laid on the floor and thus when his mom found him and called 911. He was recently diagnosed with Edmondson's palsy and has been taking the medication. So far he has completed the Valtrex and the prednisone. He is still on the doxycycline for empiric Lyme treatment. Related Data Home Medications Medication Instructions Recorded Confirmed albuterol sulfate 90 mcg/actuation 2 inh inhalation Q8H PRN 05/09/23 05/09/23 aerosol inhaler (Proventil HFA) aspirin 81 mg capsule 81 mg PO DAILY 05/09/23 05/09/23 atorvastatin 40 mg tablet 40 mg PO DAILY 05/09/23 05/09/23 doxycycline hyclate 100 mg capsule 100 mg PO DAILY 05/09/23 05/09/23 fluticasone propionate 115 2 inh inhalation ONCE 05/09/23 05/09/23 mcg-salmeterol 21 mcg/actuation HFA inhaler (Advair HFA) levothyroxine 50 mcg tablet 50 mcg PO DAILY 05/09/23 05/09/23 (Euthyrox) loperamide 2 mg capsule (Imodium 2 mg PO Q6H PRN 05/09/23 05/09/23 A-D) metoprolol succinate 50 mg 50 mg PO DAILY 05/09/23 05/09/23 tablet,extended release 24 hr omeprazole 20 mg capsule,delayed 20 mg PO DAILY PRN 05/09/23 05/09/23 release prednisolone 5 mg tablet 20 mg PO DAILY 05/09/23 05/09/23 valacyclovir 1 gram tablet 1,000 mg PO DAILY 05/09/23 05/09/23 (Valtrex) Allergies Allergy/AdvReac Type Severity Reaction Status Date / Time No Known Allergies Allergy Unverified 05/09/23 17:16 General Stated Complaint: GenMedical RADHA: 3 [facility] Social History Smoking/Tobacco Use Status: Never Smoking risk assessment performed?: Yes Alcohol Intake: current Alcohol Intake frequency: a few times a month Substance use type: does not use Housing: house Do you feel safe at home: Yes Do you feel safe in your relationship?: Yes Exam Narrative Exam Narrative: Review of Systems: All systems reviewed & are unremarkable except as noted in HPI and below: CONSTITUTIONAL: Alert and oriented Well-developed, mild acute distress HEENT: Examination consistent with Edmondson's palsy CVS: RRR, No murmurs or gallops. Peripheral pulses 2+ and equal in all extremities Brisk capillary refill in all extremities. No peripheral edema RESP: Unlabored respiratory effort, Clear to auscultation bilaterally No wheezes rales or rhonchi GI: Soft, mild epigastric tenderness, Nondistended, No organomegaly MSK: Extremities with full range of motion, no deformity or TTP SKIN: Warm, Dry. No rashes or lesions. NEURO: EDMONDSON?S PALSY left side Course Vital Signs Vital signs: Vital Signs Temperature 36.9 C 05/09/23 15: Pulse 63 05/09/23 15:23 Respiratory Rate 20 05/09/23 15:23 Blood Pressure 139/81 05/09/23 15:23 Pulse Oximetry 99 05/09/23 15:23 Temperature 36.9 C 05/09/23 15:23 Temperature Source Oral 05/09/23 15:23 Pulse 63 05/09/23 15:23 Respiratory Rate 20 05/09/23 15:28 Respiratory Effort Normal 05/09/23 15:28 Respiratory Depth Normal 05/09/23 15:28 Respiratory Pattern Normal 05/09/23 15:28 Blood Pressure 139/81 05/09/23 15:23 Pulse Oximetry 99 05/09/23 15:23 Oxygen Delivery Method Room Air 05/09/23 15:23 Oxygen Flow Rate 0 05/09/23 15:23 Sign Out Sign Out Data: Sign Out Comment: Patient with pancreatitis. Discussed with hospitalist, he is requesting a CT scan to evaluate the pancreas. If CT scan is unremarkable and he can tolerate p.o., hospitalist requesting discharge home with nausea and pain medications. Last updated by Bijan King MD at 05/09/23 17:39
[2023-05-09] MEDS: Normal Saline 1,000 ML 1000 ML IV ×2 (16:01→17:25)
[2023-05-09 16:06] LABS: HCT 42.7 % (40.0-50.0); HGB 14.4 g/dL (13.5-17.5); MCHC 33.7 % (32.0-36.0); MCV 86 fL (80-95); MPV 9.4 fL (8.0-11.0); Platelet Count 314 10^3/uL (130-400); RBC 4.97 10^6/uL (4.36-5.78); RDW 14.4 % (11.8-14.1); RDW-SD 43.1 fL; WBC 15.53 10^3/uL (4.4-10.8)
[2023-05-09 16:10] LABS: Lactate 2.1 mmol/L (0.6-1.4)
[2023-05-09 16:17] LABS: HCO3 (Venous) 25 mmol/L (23-28); TCO2 (Venous) 22 mmol/L (24-29); pCO2 (Venous) 36 mmHg (41-51); pH (Venous) 7.44 (7.31-7.41); pO2 (Venous) 41 mmHg
[2023-05-09 16:18] LABS: BE (Venous) 1 mmol/L (-2-3); O2 Sat (Venous) 78 %
[2023-05-09 16:21] LABS: Absolute Basophil Count 0.16 10^3/uL (0.0-0.2); Absolute Eosinophil Count 0.16 10^3/uL (0.0-0.7); Absolute Lymphocyte Count 2.02 10^3/uL (1.2-3.4); Absolute Monocyte Count 1.71 10^3/uL (0.1-0.8); Absolute Neutrophil Count 11.49 10^3/uL (1.2-6.7); Atypical Lymphocytes % 7; Diff Comment Manual Differential; RBC Morphology Normal
[2023-05-09 16:31] LABS: ALT 28 U/L (16-63); AST 21 U/L (15-37); Albumin 3.3 g/dL (3.4-5.0); Alkaline Phosphatase 80 U/L (46-116); Anion Gap 9.4 mmol/L (3-11); BUN 20 mg/dL (7-18); Bilirubin, Total 0.8 mg/dL (0.2-1.0); CO2 26.6 mmol/L (21.0-32.0); Calcium 9.1 mg/dL (8.5-10.1); Chloride 102 mmol/L (98-107); Estimated GFR 84.57 (mL/min/1.73m2); Glucose 100 mg/dL (74-106); Magnesium 2.1 mg/dL (1.8-2.4); Potassium 3.2 mmol/L (3.5-5.1); Sodium 138 mmol/L (136-145); Total Protein 6.9 g/dL (6.4-8.2); Troponin I < 50 ng/L (<or=60)
[2023-05-09 16:46] LABS: Lipase > 375 U/L (16-77)
[2023-05-09 17:09] LABS: Lactate 2.1 mmol/L (0.6-1.4)
--- NOTE | 2023-05-09 17:30 | DI.CT_ITS ---
Exam(s) CT ABDOMEN PELVIS W EXAM: CT ABDOMEN PELVIS W CLINICAL HISTORY: abdominal pain. TECHNIQUE: Imaging Protocol: Axial computed tomography images with coronal and sagittal reformatted images were created and reviewed CONTRAST MATERIAL: Intravenous: Omnipaque-350 100cc Oral: None COMPARISON: No exams were available for comparison FINDINGS: VISUALIZED LUNG BASES: Left hemidiaphragm is elevated. Age indeterminate. There are spiculated nodu lar infiltrates in the right lower lobe, measuring up to 1.3 cm. No associated pleural effusion. On e nodule of similar size does not appear spiculated. ABDOMEN: There is no ascites. LIVER: There is a benign-appearing well-defined hypodense lesion in the right hepatic lobe which abdias ures 9 by 6 mm and has appearance of a simple benign cyst. No other focal lesions seen in the liver. GALLBLADDER/BILIARY: No obvious gallbladder pathology. CBD is not dilated. PANCREAS: No evidence of pancreatic mass nor dilatation of the pancreatic duct. SPLEEN: Spleen is not enlarged. No obvious intrasplenic lesions. Splenic and portal veins are paten t. ADRENALS: There are no significant adrenal masses. KIDNEYS:There are parapelvic cysts in both kidneys. Also bilateral extrarenal pelves. There is slig ht dilatation of the upper left collecting system. The mid-lower ureters are not dilated. No solid renal masses. No radiopaque calculi. The urinary bladder wall is diffusely thickened and trabeculat ed. The bladder itself is not distended. There are no bladder diverticuli. Prostate mildly enlarge d. Seminal vesicles unremarkable.. ABDOMINAL AORTA: Abdominal aorta is not enlarged. LYMPH NODES:There is no retroperitoneal nor paraaortic adenopathy. ABDOMINAL WALL: No evidence of significant anterior abdominal wall nor inguinal hernia. GI: There is no evidence of bowel obstruction, free air, nor abscess. PELVIS: GI: No evidence of appendicitis.No evidence of sigmoid diverticulitis. LYMPH NODES: There is no intrapelvic nor inguinal adenopathy. REPRODUCTIVE: Mild prostate enlargement. No obturator adenopathy. URINARY BLADDER: As above. OSSEOUS: No fractures and no significant osseous lesions. IMPRESSION: 1. Bilateral renal parapelvic cysts and extrarenal renal pelves. Mild dilatation of the upper left c ollecting system but without radiopaque calculi evident and the mid-distal ureters are not dilated. No significant renal masses. 2. Urinary bladder wall is thickened and trabeculated. Prostate gland mildly enlarged. 3. No evidence of diverticulitis nor appendicitis. No evidence of bowel obstruction. 4. Small 9 millimeter benign cyst noted in the liver. RADIATION DOSE DELIVERED: Total DLP DATA REPOSITORY: All CT scans at this facility are submitted to the National Radiology Data Registry (NRDR) Dose Index Registry (DIR) with the [employer] (ACR). RADIATION OPTIMIZATION: All CT scans at this facility use at least one of these dose optimization te chniques: automated exposure control; mA and/or kV adjustment per patient size (includes targeted exa ms where dose is matched to clinical indication); or iterative reconstruction.
[2023-05-09 17:38] LABS: LDH 200 U/L (85-227)
[2023-05-09] MEDS: Omnipaque 350 MG/ML 100 ML BTL IJ (18:40)
[2023-05-09] MEDS: Normal Saline - Diluent 50 ML VIAL IJ (18:41)
[2023-05-09] MEDS: Normal Saline Flush 10 ML SYR IVP (18:42)
[2023-05-09 19:00] VITALS: BP 136/72; PULSE 68; RESP 18; O2SAT 99
--- NOTE | 2023-05-09 19:10 | DI.VRAD_ITS ---
PROCEDURE INFORMATION: Exam: CT Abdomen And Pelvis With Contrast Exam date and time: 05/09/2023 6:39 PM Age: 62 years old Clinical indication: Abdominal pain TECHNIQUE: Imaging protocol: Computed tomography of the abdomen and pelvis with contrast. Contrast material: OMNI 350; Contrast volume: 100 ml; Contrast route: INTRAVENOUS (IV); COMPARISON: No relevant prior studies available. FINDINGS: Tubes, catheters and devices: Cardiac monitoring device projects over the left chest wall. Lungs: Numerous ffekj-pvdmagp-lhrc-left pulmonary nodules, somewhat central predominant, some of which are irregular in morphology. Diaphragm: Elevated left hemidiaphragm. Liver: No hepatic masses. Gallbladder and bile ducts: No calcified stones. No ductal dilation. Pancreas: No ductal dilation. No masses. Spleen: No splenomegaly or focal lesions. Adrenal glands: No mass. Kidneys and ureters: Parapelvic cysts are likely present in the left kidney. Mild left greater than right hydronephrosis, question reflux in the setting of what appears to be chronic outlet obstructive disease of the urinary bladder. Stomach and bowel: No obstruction. No mucosal thickening. Appendix: No evidence of appendicitis. Intraperitoneal space: No free air. No significant fluid collection. Vasculature: No abdominal aortic aneurysm. Lymph nodes: Benign-appearing calcified mediastinal lymph nodes. Benign-appearing calcified upper abdominal lymph nodes. No significant adenopathy. Urinary bladder: Moderately thick-walled urinary bladder relatively symmetric likely chronic outlet obstructive disease. The bladder is mildly distended. Reproductive: Mild prostatic enlargement. Bones/joints: Chronic bony changes with no acute fracture. Soft tissues: No suspicious lesions. IMPRESSION: 1. Mild left greater than right hydronephrosis, question reflux in the setting of what appears to be chronic outlet obstructive disease of the urinary bladder. 2. Numerous pfggw-guyozrm-ganu-left pulmonary nodules, somewhat central predominant, some of which are irregular in morphology. The etiology is uncertain, consider infectious, inflammatory and metastatic disease. 3. Incidental findings as described. Dictated and Authenticated by: Ary Deal MD. Ordering:[facility] Fernando Durham MD
[2023-05-09 19:42] VITALS: BP 148/79; PULSE 70; RESP 18; O2SAT 99
--- NOTE | 2023-05-09 19:56 | ED.PROG_ITS ---
Date of service: 05/09/23 Time of Service: 19:56 Medical Decision Making Patient signed out to me pending CT scan results. He had presented with complaints of not feeling well, kind of out of it, intermittent abdominal pain. He was found to have an elevated lipase as well as white count. Otherwise laboratory studies fairly unremarkable. Previous provider had spoken with hospitalist who requested CT scan and p.o. challenge given that patient not having significant pain. CT scan per radiology with normal pancreas. He does have pulmonary nodules which I did discuss with him and he is currently followed by Dr. Rm and is aware of these nodules. He has been drinking loreta selam and eating crackers without difficulty. We will plan discharge home on a bland diet and follow-up with primary care next week. Return precautions discussed. Lab Data Lab results reviewed: Yes I reviewed the patient's lab results. Exam Narrative Exam Narrative: Const: WDWN male in NAD. HEENT: NC/AT. 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 Neck: Supple. Trachea midline. Lungs: Normal respiratory effort. Neuro: A+O x 3. Normal speech, mentation, gait. Sign Out Sign Out Data: Sign Out Comment: Patient with pancreatitis. Discussed with hospitalist, he is requesting a CT scan to evaluate the pancreas. If CT scan is unremarkable and he can tolerate p.o., hospitalist requesting discharge home with nausea and pain medications. Last updated by Bijan King MD at 05/09/23 17:39 Discharge Plan Disposition Patient Disposition: Home Condition: Good Discharge Details Clinical Impression: Serum lipase elevation Primary Care Provider: Caryn Hammond ED Provider: Logan Knight [place] Meds and New Rx's Prescriptions: Continued valacyclovir [Valtrex] 1 gram tablet 1,000 mg PO DAILY doxycycline hyclate 100 mg capsule 100 mg PO DAILY prednisolone 5 mg tablet 20 mg PO DAILY fluticasone propion-salmeterol [Advair HFA] 115-21 mcg/actuation HFA aerosol inhaler 2 inh inhalation ONCE aspirin 81 mg capsule 81 mg PO DAILY atorvastatin 40 mg tablet 40 mg PO DAILY metoprolol succinate 50 mg tablet extended release 24 hr 50 mg PO DAILY omeprazole 20 mg capsule,delayed release(DR/EC) 20 mg PO DAILY PRN loperamide [Imodium A-D] 2 mg capsule 2 mg PO Q6H PRN levothyroxine [Euthyrox] 50 mcg tablet 50 mcg PO DAILY albuterol sulfate [Proventil HFA] 90 mcg/actuation HFA aerosol inhaler 2 inh inhalation Q8H PRN Discharge Instructions Additional Instructions: You were found to have an elevated white count and lipase but no evidence of pancreatitis or other acute process on your abdominal pelvic CT scan. You have tolerated loreta selam and crackers here. We recommend that you continue to drink plenty of fluids and maintain a bland diet for the weekend. Follow-up with your primary care next week. Return to the ED if you develop worsening abdominal pain, vomiting, fever, chest pain, other concerns.
[2023-05-09 20:05] VITALS: BP 123/59; PULSE 70; RESP 18; O2SAT 99
--- NOTE | 2023-05-12 10:43 | NUR.NOTE ---
Accessed chart to determine orders for EKG and to determine whether or not one needs to be cancelled. Nursing Note:
== END 2023-05-09 20:15 | disposition home or self-care (01) ==
PROVIDERS: Emergency Medicine; Emergency Provider Emergency Medicine; PCP Family Medicine
DX: R74.9 Abnormal serum enzyme level, unspecified (principal); R91.8 Other nonspecific abnormal finding of lung field; G51.0 Bell's palsy; Z79.82 Long term (current) use of aspirin
CPT/HCPCS: 00123; 36415; 80053; 82805; 83690; 93005; 96360; 96361; 99285; 74177; 83605; 83615; 83735; 84484; 85025; 93010; J3490

== ENCOUNTER 2023-07-25 02:58 | Outpatient (CLI) | payer MEDICAID, SELFPAY ==
[2023-07-25] MEDS: Levalbuterol HFA 15 GM INH 4 PUFF IH (08:33)
[2023-07-25] MEDS: Inhaler, Assist Device 1 EACH MC (08:34)
--- NOTE | 2023-07-25 08:50 | W.PFT ---
Date of service: 07/25/23 Time of Service: 07:58 Pulmonary Function Test Result Indications: Sarcoidosis Interpretation Spirometry: There is no airflow limitation. No bronchodilator response. There is restrictive spirometry. Lung Volumes: There is moderate restrictive lung disease. Diffusion Capacity: There is a decreased diffusion. Airway Pressure: Normal airways resistance. Impression Moderate restrictive lung disease with a decreased diffusion. Clinical Correlation therefore is recommended.
== END 2023-07-25 02:59 | disposition home or self-care (01) ==
LOC: RT 02:58
PROVIDERS: PCP Family Medicine; Visit Provider Student in an Organized Health Care Education/Training Program
DX: D86.9 Sarcoidosis, unspecified (principal)
CPT/HCPCS: 94060; 94726; 94729

== ENCOUNTER 2023-07-29 09:01 | Outpatient (CLI) | payer MEDICAID, SELFPAY ==
[2023-07-29 12:17] LABS: HCT 43.7 % (40.0-50.0); HGB 14.4 g/dL (13.5-17.5); MCH 29.1 pg (27.0-33.0); MCV 88 fL (80-95); MPV 9.5 fL (8.0-11.0); Platelet Count 300 10^3/uL (130-400); RBC 4.95 10^6/uL (4.36-5.78); RDW-SD 45.3 fL
[2023-07-29 12:38] LABS: Calculated LDL 88 mg/dL (<100); Cholesterol 151 mg/dL (<200); HDL Cholesterol 46 mg/dL (40-60); TSH (W/Ref FT4) 2.81 uIU/mL (0.36-3.74); Triglyceride 88 mg/dL (<150)
== END 2023-07-29 09:02 | disposition home or self-care (01) ==
LOC: LOS 09:02
PROVIDERS: PCP Family Medicine; Referring Provider Family Medicine; Visit Provider Family Medicine
DX: I10 Essential (primary) hypertension (principal); J98.4 Other disorders of lung; E03.9 Hypothyroidism, unspecified
CPT/HCPCS: 36415; 80061; 85027; 84443

== ENCOUNTER → 2023-08-14 14:24 | Outpatient (CLI) | payer MEDICAID, SELFPAY ==
--- NOTE | 2023-08-14 11:00 | DI.RAD_ITS ---
Exam(s) XR CHEST 2V PA LATERAL EXAM: XR CHEST 2V PA LATERAL CLINICAL HISTORY: R05.9 Cough, Unspecified. evaluate pathology. TECHNIQUE: 2D digital imaging was performed. COMPARISON: CR,XR XR PORTABLE CHEST AP from 04/14/[address] CHEST WO from 04/18/2022 FINDINGS: 2 views: Elevated left hemidiaphragm unchanged from at least 2020. Left anterior chest wall cardiac loop dete ctor again noted. Heart size is normal. The mediastinum is not widened. Bilateral upper lobe suprahilar infiltrates are again noted, right side appears to have further incre ased in size from 2020. Left side remains stable. No obvious pleural effusions. IMPRESSION: Bilateral significant findings as above. If clinically indicated CT scan can be performed to compare d to the prior CT scan of April 2021. DATA REPOSITORY: RADIATION DOSE DELIVERED:
== END ==
PROVIDERS: PCP Family Medicine; Visit Provider Nurse Practitioner Family
DX: R05.9 Cough, unspecified (principal)
CPT/HCPCS: 71046

== ENCOUNTER 2023-10-27 14:09 | Outpatient (REF) | payer MEDICAID, SELFPAY ==
[2023-10-27 15:36] LABS: Abs Immature Grans 0.04 10^3/uL (0.0-0.06); Absolute Basophil Count 0.06 10^3/uL (0.0-0.2); Absolute Eosinophil Count 0.51 10^3/uL (0.0-0.7); Absolute Lymphocyte Count 0.81 10^3/uL (1.2-3.4); Absolute Monocyte Count 1.03 10^3/uL (0.1-0.8); Absolute Neutrophil Count 6.57 10^3/uL (1.2-6.7); Basophils % 0.7 %; Eosinophils % 5.7 %; HCT 44.1 % (40.0-50.0); HGB 14.7 g/dL (13.5-17.5); Immature Grans % 0.4 %; MCH 29.1 pg (27.0-33.0); MCHC 33.3 % (32.0-36.0); MCV 87 fL (80-95); MPV 10.1 fL (8.0-11.0); Monocytes % 11.4 %; Neutrophils % 72.8 %; Platelet Count 309 10^3/uL (130-400); RBC 5.06 10^6/uL (4.36-5.78); RDW 13.4 % (11.8-14.1); RDW-SD 42.8 fL; WBC 9.02 10^3/uL (4.4-10.8)
[2023-10-27 15:50] LABS: ALT 27 U/L (16-63); AST 24 U/L (15-37); Albumin 3.7 g/dL (3.4-5.0); Alkaline Phosphatase 93 U/L (46-116); Anion Gap 7.7 mmol/L (3-11); BUN 17 mg/dL (7-18); Bilirubin, Total 0.5 mg/dL (0.2-1.0); CO2 27.3 mmol/L (21.0-32.0); Calcium 8.8 mg/dL (8.5-10.1); Chloride 105 mmol/L (98-107); Estimated GFR 84.05 (mL/min/1.73m2); Glucose 65 mg/dL (74-106); Sodium 140 mmol/L (136-145); Total Protein 7.1 g/dL (6.4-8.2)
== END 2023-10-27 14:10 | disposition home or self-care (01) ==
LOC: LBN 14:09
PROVIDERS: PCP Family Medicine; Visit Provider Physician Assistant Surgical
DX: J84.9 Interstitial pulmonary disease, unspecified (principal)
CPT/HCPCS: 80053; 85025

== ENCOUNTER 2024-02-23 03:36 | Outpatient (CLI) | payer MEDICAID, SELFPAY ==
--- NOTE | 2024-02-23 07:45 | DI.RAD_ITS ---
Exam(s) XR KNEE LT 3V AP,LAT,TIFFANI EXAM: XR KNEE LT 3V AP,LAT,TIFFANI CLINICAL HISTORY: l knee pain,M25.562. TECHNIQUE: 2D digital imaging was performed. COMPARISON: No exams were available for comparison FINDINGS: 3 views No evidence fracture or prominent joint effusion. There are moderate degenerative changes at the lev el of the tibial spines. However, there is no prominent joint space narrowing. There is an enthesop hyte at the quadriceps insertion on the anterosuperior aspect of the patella. There is mild prepatel lar swelling. No patellar fracture. No radiopaque foreign body. IMPRESSION: Some degenerative changes as described above. No obvious joint effusion. DATA REPOSITORY: RADIATION DOSE DELIVERED:
== END 2024-02-23 03:56 ==
LOC: DI 03:36
PROVIDERS: PCP Family Medicine; Visit Provider Family Medicine
DX: M25.562 Pain in left knee (principal)
CPT/HCPCS: 73562

== ENCOUNTER 2024-05-20 07:44 | Outpatient (CLI) | payer MEDICAID, SELFPAY ==
[2024-05-20 12:35] LABS: HCT 42.4 % (40.0-50.0); HGB 13.7 g/dL (13.5-17.5); MCHC 32.3 % (32.0-36.0); MCV 90 fL (80-95); MPV 9.7 fL (8.0-11.0); Platelet Count 263 10^3/uL (130-400); RBC 4.72 10^6/uL (4.36-5.78); RDW 13.8 % (11.8-14.1); RDW-SD 45.4 fL; WBC 10.07 10^3/uL (4.4-10.8)
[2024-05-20 13:12] LABS: ALT 28 U/L (16-63); AST 27 U/L (15-37); Albumin 3.5 g/dL (3.4-5.0); Alkaline Phosphatase 91 U/L (46-116); Anion Gap 6.1 mmol/L (3-11); BUN 15 mg/dL (7-18); Bilirubin, Total 0.65 mg/dL (0.2-1.0); CO2 29.9 mmol/L (21.0-32.0); CREATININE 1.2 mg/dL (0.70-1.30); Chloride 106 mmol/L (98-107); Estimated GFR 67.53 (mL/min/1.73m2); Glucose 93 mg/dL (74-106); Potassium 4.5 mmol/L (3.5-5.1); Sodium 142 mmol/L (136-145); TSH (W/Ref FT4) 2.59 uIU/mL (0.36-3.74); Total Protein 7.3 g/dL (6.4-8.2); Vitamin B12 496 pg/mL (193-986)
== END 2024-05-20 07:45 | disposition home or self-care (01) ==
LOC: LOS 07:45
PROVIDERS: PCP Family Medicine; Visit Provider Family Medicine
DX: E03.9 Hypothyroidism, unspecified (principal); Z00.00 Encounter for general adult medical examination without abnormal findings; D86.9 Sarcoidosis, unspecified; I10 Essential (primary) hypertension
CPT/HCPCS: 36415; 80053; 85027; 82607; 84443

== ENCOUNTER 2024-08-17 12:08 | Outpatient (REF) | payer MEDICARE, MEDICAID, SELFPAY ==
--- NOTE | 2024-08-17 11:15 | LIPBX_PTH ---
PATIENT: Jasmeet Murphy LOC: [facility] U#:[id number] AGE/SX: 63/M ROOM: RE08/17/[address]: Timo Nayak MD : 1960 BED: DIS: 08/17/2024 SPEC #: [id number] RECD: 08/17/24 17:38 STATUS: TENZIN REQ #: [id number] STAN: 08/17/24 11:[address]: Timo Nayak DEPT: Surgical Specimen RECD BY: Jackie Best ENTERED: 08/17/24 17:40 SP TYPE: LIPBX OTHR DR: Caryn Hammond MD, DC Tissues: 1 - LIP BIOPSY/RESECTION Procedures: GROSS AND MICRO LEVEL 4 Comments: [id number]
== END 2024-08-17 12:09 | disposition home or self-care (01) ==
LOC: LBN 12:08
PROVIDERS: PCP Family Medicine; Visit Provider Otolaryngology
DX: L98.9 Disorder of the skin and subcutaneous tissue, unspecified (principal)
CPT/HCPCS: 88305

== ENCOUNTER → 2024-11-10 12:10 | Outpatient (BNVA) | payer MEDICARE, MEDICAID, SELFPAY | PROVIDERS: PCP Family Medicine; Referring Provider Family Medicine; Visit Provider Physician Assistant Surgical | DX: J98.4 Other disorders of lung (principal); J98.6 Disorders of diaphragm; J84.10 Pulmonary fibrosis, unspecified; D86.9 Sarcoidosis, unspecified; J84.9 Interstitial pulmonary disease, unspecified | CPT/HCPCS: 99214; 94010; 36415 ==

== ENCOUNTER 2024-11-10 13:41 | Outpatient (REF) | payer MEDICARE, SELFPAY ==
[2024-11-10 13:39] LABS: Abs Immature Grans 0.04 10^3/uL (0.0-0.06); Absolute Basophil Count 0.09 10^3/uL (0.0-0.2); Absolute Eosinophil Count 0.45 10^3/uL (0.0-0.7); Absolute Lymphocyte Count 0.57 10^3/uL (1.2-3.4); Absolute Monocyte Count 0.84 10^3/uL (0.1-0.8); Absolute Neutrophil Count 6.57 10^3/uL (1.2-6.7); Basophils % 1.1 %; Eosinophils % 5.3 %; HCT 41.3 % (40.0-50.0); HGB 13.5 g/dL (13.5-17.5); Immature Grans % 0.5 %; Lymphocytes % 6.7 %; MCHC 32.7 % (32.0-36.0); MCV 89 fL (80-95); MPV 9.7 fL (8.0-11.0); Monocytes % 9.8 %; Neutrophils % 76.6 %; Platelet Count 275 10^3/uL (130-400); RBC 4.65 10^6/uL (4.36-5.78); RDW 13.5 % (11.8-14.1); RDW-SD 43.8 fL; WBC 8.56 10^3/uL (4.4-10.8)
[2024-11-10 13:44] LABS: ALT 20 U/L (16-63); AST 23 U/L (15-37); Albumin 3.5 g/dL (3.4-5.0); Alkaline Phosphatase 91 U/L (46-116); Anion Gap 7.8 mmol/L (3-11); BUN 19 mg/dL (7-18); Bilirubin, Total 0.6 mg/dL (0.2-1.0); CO2 25.2 mmol/L (21.0-32.0); Calcium 8.7 mg/dL (8.5-10.1); Chloride 105 mmol/L (98-107); Estimated GFR 83.52 (mL/min/1.73m2); Glucose 104 mg/dL (74-106); Potassium 4.2 mmol/L (3.5-5.1); Sodium 138 mmol/L (136-145); Total Protein 6.9 g/dL (6.4-8.2)
== END 2024-11-10 13:42 | disposition home or self-care (01) ==
LOC: LBN 13:41
PROVIDERS: PCP Family Medicine; Visit Provider Physician Assistant Surgical
DX: J84.112 Idiopathic pulmonary fibrosis (principal); J84.9 Interstitial pulmonary disease, unspecified
CPT/HCPCS: 80053; 85025

== ENCOUNTER 2025-05-04 09:04 | Outpatient (CLI) | payer MEDICARE, SELFPAY ==
[2025-05-04 13:06] LABS: HCT 38.5 % (40.0-50.0); HGB 12.5 g/dL (13.5-17.5); MCH 28.7 pg (27.0-33.0); MCHC 32.5 % (32.0-36.0); MCV 88 fL (80-95); MPV 9.0 fL (8.0-11.0); Platelet Count 239 10^3/uL (130-400); RBC 4.36 10^6/uL (4.36-5.78); RDW 13.6 % (11.8-14.1); RDW-SD 44.3 fL; WBC 9.38 10^3/uL (4.4-10.8)
[2025-05-04 14:03] LABS: TSH (W/Ref FT4) 2.67 uIU/mL (0.55-4.78)
[2025-05-04 14:06] LABS: ALT 16 U/L (10-49); AST 20 U/L (<34); Albumin 4.2 g/dL (3.2-5.0); Alkaline Phosphatase 85 U/L (46-116); Anion Gap 4.6 mmol/L (3-11); BUN 19 mg/dL (9-23); Bilirubin, Total 0.60 mg/dL (0.2-1.2); CO2 27.4 mmol/L (20.0-31.0); Calcium 8.9 mg/dL (8.3-10.6); Chloride 107 mmol/L (98-107); Cholesterol 118 mg/dL (<200); Glucose 91 mg/dL (74-106); HDL Cholesterol 33 mg/dL (>40); Potassium 4.9 mmol/L (3.5-5.1); Sodium 139 mmol/L (136-145); Total Protein 7.1 g/dL (5.7-8.2)
== END 2025-05-04 09:05 | disposition home or self-care (01) ==
LOC: LBO 09:05
PROVIDERS: PCP Family Medicine; Visit Provider Family Medicine
DX: D86.0 Sarcoidosis of lung (principal); E03.9 Hypothyroidism, unspecified; I10 Essential (primary) hypertension
CPT/HCPCS: 36415; 80053; 80061; 85027; 84443

== ENCOUNTER → 2025-05-11 09:23 | Outpatient (BNVA) | payer MEDICARE, SELFPAY | PROVIDERS: PCP Family Medicine; Referring Provider Family Medicine; Visit Provider Internal Medicine Pulmonary Disease | DX: D86.0 Sarcoidosis of lung (principal); J62.8 Pneumoconiosis due to other dust containing silica; J84.9 Interstitial pulmonary disease, unspecified | CPT/HCPCS: 99214 ==

== ENCOUNTER → 2025-05-25 00:21 | Outpatient (CLI) | payer MEDICARE, SELFPAY ==
--- NOTE | 2025-05-25 06:45 | DI.CT_ITS ---
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 TECHNIQUE: Imaging protocol: Axial computed tomography images were obtained and coronal and sagittal reformatted images were created and reviewed. Computer aided detection (CAD) was utilized. CONTRAST MATERIAL: Noncontrast COMPARISON: CR CHEST 2 VIEWS PA,LAT from 03/31/2015 CR XR CHEST 2V PA LATERAL from 01/14/2019 CR,XR XR PORTABLE CHEST AP from 04/14/[address] CHEST WO from 04/18/[address] ABDOMEN PELVIS W from 05/09/2023 CR XR CHEST 2V PA LATERAL from 08/14/2023 FINDINGS: Pulmonary parenchyma: Marked elevation of the left diaphragm is again noted. Severe left-sided volume loss, particularly of the upper lobe with calcifications and air bronchograms. Moderate loss of volume of the right upper lobe also with calcifications and air bronchograms. Innumerable bilateral pu lmonary nodules are again noted. No visible change from prior. Tracheobronchial tree: No mucous plugging. No bronchiectasis . Pleura: No effusion or pneumothorax. No pleural thickening noted in the anterior left upper lobe and posterolateral right upper lobe. Heart: The heart is not dilated. The coronary arteries show moderate calcifications. Loop recorder device. Aorta: Thoracic aorta non-dilated. Mild atherosclerotic changes. Lymph nodes: Calcified mediastinal lymph nodes are again noted. Bones: Degenerative changes are seen. No evidence of compression fracture. Upper abdomen: Unremarkable. Soft tissues: Unremarkable. IMPRESSION: Stable appearance of bilateral perihilar areas of scarring and bilateral upper lobe volume loss, left greater than right. Stable appearance of innumerable bilateral pulmonary nodules. RADIATION DOSE DELIVERED: 237.87mGy.cm Total DLP 237.87mGy.cm Total DLP DATA REPOSITORY: All CT scans at this facility are submitted to the National Radiology Data Registry (NRDR) Dose Index Registry (DIR) with the [employer] ([employer]). RADIATION OPTIMIZATION: All CT scans at this facility use at least one of these dose optimization techniques: automated exposure control; mA and/or kV adjustment per patient size (includes targeted exams where dose is matched to clinical indication); or iterative reconstruction.
== END ==
LOC: DI 00:21
PROVIDERS: PCP Family Medicine; Visit Provider Internal Medicine Pulmonary Disease
DX: J84.9 Interstitial pulmonary disease, unspecified (principal); J62.8 Pneumoconiosis due to other dust containing silica; D86.0 Sarcoidosis of lung
CPT/HCPCS: 71250; 94060; 94726; 94729

== ENCOUNTER 2025-05-25 00:55 | Outpatient (CLI) | payer MEDICARE, SELFPAY ==
[2025-05-25] MEDS: Levalbuterol HFA 15 GM INH 4 PUFF IH (09:49)
[2025-05-25] MEDS: Inhaler, Assist Device 1 EACH MC (09:49)
--- NOTE | 2025-05-25 13:48 | W.PFT ---
Date of service: 05/25/25 Time of Service: 08:00 Pulmonary Function Test Result Indications: ILD, sarcoidosis Impression 1. Good patient effort was noted. ATS standards for reproducibility were met. 2. Spirometry was not consistent with obstructive lung disease. 3. Following the administration of a bronchodilator there was not a significant response 4. TLC is reduced at 55% predicted, consistent with moderate restrictive lung disease 5. DLCO was 59%, consistent with a moderate defect in alveolar gas exchange 6. Compared to his prior testing in 07/2023, his TLC and DLCO are unchanged
== END 2025-05-25 00:56 | disposition home or self-care (01) ==
LOC: RT 00:55
PROVIDERS: PCP Family Medicine; Visit Provider Internal Medicine Pulmonary Disease
DX: J84.9 Interstitial pulmonary disease, unspecified (principal); J62.8 Pneumoconiosis due to other dust containing silica; D86.0 Sarcoidosis of lung
CPT/HCPCS: 94060; 94726; 94729